=== PATIENT | male | born 1955 | race Caucasian/White ===

== ENCOUNTER → 2022-10-13 08:46 | Outpatient (BNVA) | payer MEDICARE, SELFPAY | PROVIDERS: Visit Provider Podiatrist Foot & Ankle Surgery | DX: E11.42 Type 2 diabetes mellitus with diabetic polyneuropathy (principal); L84 Corns and callosities; L60.3 Nail dystrophy; M20.41 Other hammer toe(s) (acquired), right foot; M20.42 Other hammer toe(s) (acquired), left foot; M21.41 Flat foot [pes planus] (acquired), right foot; M21.42 Flat foot [pes planus] (acquired), left foot; I73.9 Peripheral vascular disease, unspecified; E11.621 Type 2 diabetes mellitus with foot ulcer; L97.512 Non-pressure chronic ulcer of other part of right foot with fat layer exposed; Z79.84 Long term (current) use of oral hypoglycemic drugs | CPT/HCPCS: 11055; 11721; 99204 ==

== ENCOUNTER → 2022-12-15 12:29 | Outpatient (BNVA) | payer MEDICARE, SELFPAY | PROVIDERS: Referring Provider Family Medicine; Visit Provider Internal Medicine | DX: R07.9 Chest pain, unspecified (principal); I45.10 Unspecified right bundle-branch block; I73.9 Peripheral vascular disease, unspecified; I25.10 Atherosclerotic heart disease of native coronary artery without angina pectoris; I48.91 Unspecified atrial fibrillation; I48.92 Unspecified atrial flutter | CPT/HCPCS: 36415; 80053; 83880; 85025; 85610; 93005; 99214 ==

== ENCOUNTER → 2023-01-01 08:19 | Outpatient (BNVA) | payer MEDICARE, SELFPAY | PROVIDERS: Visit Provider Thoracic Surgery (Cardiothoracic Vascular Surgery) | DX: E11.52 Type 2 diabetes mellitus with diabetic peripheral angiopathy with gangrene (principal); L97.512 Non-pressure chronic ulcer of other part of right foot with fat layer exposed; L97.522 Non-pressure chronic ulcer of other part of left foot with fat layer exposed | CPT/HCPCS: 11042; 97597; 99213 ==

== ENCOUNTER → 2023-01-08 09:32 | Outpatient (BNVA) | payer MEDICARE, SELFPAY | PROVIDERS: Visit Provider Thoracic Surgery (Cardiothoracic Vascular Surgery) | DX: E11.52 Type 2 diabetes mellitus with diabetic peripheral angiopathy with gangrene (principal); L97.512 Non-pressure chronic ulcer of other part of right foot with fat layer exposed; L97.522 Non-pressure chronic ulcer of other part of left foot with fat layer exposed | CPT/HCPCS: 11042; 97597 ==

== ENCOUNTER → 2023-01-15 09:04 | Outpatient (BNVA) | payer MEDICARE, SELFPAY | PROVIDERS: Visit Provider Thoracic Surgery (Cardiothoracic Vascular Surgery) | DX: E11.52 Type 2 diabetes mellitus with diabetic peripheral angiopathy with gangrene (principal); L97.512 Non-pressure chronic ulcer of other part of right foot with fat layer exposed; L97.522 Non-pressure chronic ulcer of other part of left foot with fat layer exposed | CPT/HCPCS: 11042; 97597; A6219 ==

== ENCOUNTER → 2023-01-20 08:10 | Outpatient (BNVA) | payer MEDICARE, SELFPAY | PROVIDERS: Visit Provider Thoracic Surgery (Cardiothoracic Vascular Surgery) | DX: E11.52 Type 2 diabetes mellitus with diabetic peripheral angiopathy with gangrene (principal); L97.512 Non-pressure chronic ulcer of other part of right foot with fat layer exposed; L97.521 Non-pressure chronic ulcer of other part of left foot limited to breakdown of skin | CPT/HCPCS: 11042; 97597; A6252 ==

== ENCOUNTER → 2023-01-22 09:03 | Outpatient (BNVA) | payer MEDICARE, SELFPAY | PROVIDERS: Visit Provider Nurse Practitioner Family | DX: E11.52 Type 2 diabetes mellitus with diabetic peripheral angiopathy with gangrene (principal); L97.512 Non-pressure chronic ulcer of other part of right foot with fat layer exposed; L97.522 Non-pressure chronic ulcer of other part of left foot with fat layer exposed | CPT/HCPCS: 11042; A6212; A6252 ==

== ENCOUNTER → 2023-01-25 15:19 | Outpatient (BNVA) | payer MEDICARE, SELFPAY | PROVIDERS: Visit Provider Nurse Practitioner Family | DX: E11.52 Type 2 diabetes mellitus with diabetic peripheral angiopathy with gangrene (principal); L97.512 Non-pressure chronic ulcer of other part of right foot with fat layer exposed; Z09 Encounter for follow-up examination after completed treatment for conditions other than malignant neoplasm | CPT/HCPCS: 11042; A6252 ==

== ENCOUNTER → 2023-01-29 11:16 | Outpatient (BNVA) | payer MEDICARE, SELFPAY | PROVIDERS: Visit Provider Nurse Practitioner Family | DX: E11.52 Type 2 diabetes mellitus with diabetic peripheral angiopathy with gangrene (principal); L97.512 Non-pressure chronic ulcer of other part of right foot with fat layer exposed | CPT/HCPCS: 11042 ==

== ENCOUNTER → 2023-02-02 08:40 | Outpatient (BNVA) | payer MEDICARE, SELFPAY | PROVIDERS: Visit Provider Podiatrist Foot & Ankle Surgery | DX: L97.512 Non-pressure chronic ulcer of other part of right foot with fat layer exposed (principal); I73.9 Peripheral vascular disease, unspecified; E11.621 Type 2 diabetes mellitus with foot ulcer; L97.514 Non-pressure chronic ulcer of other part of right foot with necrosis of bone; E11.42 Type 2 diabetes mellitus with diabetic polyneuropathy; M20.41 Other hammer toe(s) (acquired), right foot; M20.42 Other hammer toe(s) (acquired), left foot | CPT/HCPCS: 73630; 87070; 87075; 87077; 87186; 87205; 99214 ==

== ENCOUNTER 2023-02-05 06:02 | Day surgery (SDC) | payer MEDICARE, SELFPAY ==
[2023-02-04 09:22] VITALS: BMI 25.7
[2023-02-05] VITALS (7 sets, daily range): BP systolic 103–126; BP diastolic 54–89; PULSE 57–65; RESP 12–18; TEMP 36.2–36.7; O2SAT 94–100; BMI 25.7
--- NOTE | 2023-02-05 06:09 | P.OP_ITS ---
Operative Report Date of procedure: February 05, 2023 Pre-op diagnosis: Osteomyelitis proximal phalanx right fifth toe Osteomyelitis right fifth metatarsal Diabetes with peripheral neuropathy Peripheral arterial disease with history of revascularization of lower extremities. Post-op diagnosis: Same Post-op findings: Devitalized bone at the right fifth metatarsal head and fifth proximal phalanx base Procedure done: Incision down to bone cortex right foot CPT code 13344 Implants: None Specimens removed/disposition: Fifth metatarsal bone sent to microbiology for Gram stain, culture and sensitivity Pathology: Base of fifth proximal phalanx, right foot sent to pathology for review Surgeon: Prabhu Avelar DPM Tow Truck Dispatcher: Akhil Estimated blood loss: 5 12 IV fluids: 0 Urine output: 0 Complications: None Brief History: Wound exposed to bone right forefoot. -X-ray right foot shows potential pathologic fracture of the lateral condyle at the base of the proximal phalanx right fifth toe with erosive changes suggestive of osteomyelitis.? No foreign body appreciated on right foot x-ray 3 views, no soft tissue emphysema appreciated.? Tailor's bunion present.? Increased fourth intermetatarsal angle right foot. -Wound culture taken sent to microbiology for Gram stain, culture and sensitivity -prescribed Bactrim DS and may adjust pending wound culture findings -Continue with Dakin's wet-to-dry -Offload with cam boot, right foot Discussed potential benefit of surgical debridement this would entail resection of the base of the proximal phalanx and head of the fifth metatarsal versus partial fifth ray resection.? Patient and are on board and like to have this done in conjunction with continuation of antibiotics and wound care clinic.? I contacted wound care clinic, they will hold his appointment this Wednesday and resume wound care appointments the following 02/12/2023.? Planning for outpatient surgery for surgical debridement right foot wound 02/05/2023. I reviewed at length with the patient, the risks, potential complications, benefits, alternatives, expectations, and typical outcomes associated with the surgery. The risks and potential complications were explained in detail, including but not limited to infection, wound dehiscence or soft tissue complications, bleeding and hematoma, chronic edema, neuritis or nerve damage producing numbness or chronic pain, CRPS, failure to relieve pain or worsening pain, thick / painful / unsightly scar, limited motion / stiffness, malposition, delayed union, malunion, or nonunion, fracture, reaction to implants, anesthetic complications, venous thromboembolism, and deformity recurrence.? I discussed the notion of no regrets with the patient as it pertains to complications and outcomes. The patient seemed to understand the nature of the proposed care and required convalescence. They asked appropriate questions, answered to their satisfaction. They are aware no guarantees can be made as to a satisfactory outcome and they understand there may be other possible unforeseen complications or outcomes not listed here that will be treated accordingly if they arise. There were no written or implied guarantees given to the patient. They gave informed consent to proceed. Procedure: Under mild sedation the patient was brought to the operating room and remained on the gurney in supine position. A timeout was performed. Anesthesia was then administered by the anesthesia service. Local anesthesia was injected by myself consisting of 30 cc of one-to-one mixture 1% lidocaine and 0.5% Marcaine plain in a reverse Portillo block fashion to the right foot. Right lower extremity was scrubbed, prepped and draped utilizing normal aseptic technique. Esmarch bandage utilized to the tourniquet for a total of 12 minutes the right ankle with underlying cast padding. Attention was directed to the right foot where a full-thickness wound with exposed fifth metatarsal head and base of the proximal phalanx of the fifth toe was visualized with hernandez and black undertone of devitalized tissue involving bone. Incision was extended distally and proximally to area of devitalized tissue and circumferentially margins were excised full-thickness of skin down to deep fascia and bone down to healthy margins. A sagittal saw was utilized to incise bone at the distal aspect of the right fifth metatarsal this was then sent to microbiology for Gram stain, culture and sensitivity to help guide antibiotic therapies moving forward. Base of the proximal phalanx of the right fifth toe was also transected utilizing a sagittal saw and this bone was sent to pathology for review. The incision was irrigated with copious amounts of Staticin solution. All visualized devitalized tissue was excised sharply and passed in the operative field followed by further irrigation. Post surgical wound measurements to the right lateral forefoot were 6.4 cm x 3.2 cm by 0.5 cm. No further devitalized tissue appreciated. There was some bleeding at skin margins, questionable if perfusion is adequate for healing of the right lateral forefoot wound, have to monitor closely. Tourniquet was removed and a delayed hyperemic response was noted to the right lateral forefoot, capillary refill was 5 seconds at the fifth toe. Dressing of saline wet-to-dry utilizing sterile 4 x 4's, Kerlix, ABD pad and Primo wrap without compression as to not impede further circulatory perfusion. Cam boot was applied to the right lower extremity. Postop x-rays pending. Patient tolerated the procedure and anesthesia well and was transferred to the PACU with vital signs stable and vascular status intact. Following a period of postoperative monitoring he will be discharged home. Will continue Bactrim DS as previously prescribed. Wound cultures are still pending taken in clinic 02/02/2023. Will await surgical cultures as well to determine antibiotic selection. Ultimately patient is at risk for a higher level of amputation. Appreciate wound care clinic for management of his wound moving forward. He has an appointment with wound care clinic on 02/12/2023 at 3:45 PM.
--- NOTE | 2023-02-05 06:09 | W.PM.OPSUD ---
Surgery/Procedure H&P Update DATE OF PROCEDURE: February 05, 2023 DATE H&P PERFORMED: 02/02/23 H&P UPDATE INFORMATION: I have reviewed H&P completed within last 30 days, I have examined patient prior to procedure, No changes to prior documentation and H&P is in [facility] EMR on date indicated PREOP DIAGNOSIS: Osteomyelitis right foot PRIMARY INDICATION FOR PROCEDURE: Osteomyelitis right foot PLANNED PROCEDURE: Operation Date: 02/05/23 07:00 Proposed Procedures p Incision Bone Cortex Right Foot 05753,L97.514(Right) - Prabhu Avelar DPM
[2023-02-05] MEDS: sodium chloride 0.9% 1,000 ML 30 ML IV (06:44)
[2023-02-05] MEDS: ceFAZolin 2,000 MG in sodium chloride 0.9% (plus) 50 ML 100 MG IV (06:58)
--- NOTE | 2023-02-05 07:34 | XR_ITS ---
WS: [id number] Right foot, 3 views, 02/05/2023 Clinical Data: post op right foot 5th ray Comparison: Right foot, 02/02/2023 Findings: The distal half of the right fifth metatarsal has been amputated. The distal portion of the right fif th toe remains. The remainder of the right foot shows no change. Impression: Amputation of the distal half of the right fifth metatarsal.
[2023-02-05] MEDS: BUPivacaine 0.5% INJ 30 mL INJECTION (07:39)
--- NOTE | 2023-02-05 08:30 | P.ANESASSM_ITS ---
Pre-Anesthetic Assessment Height/Weight: Height 1.83 m Weight 86.183 kg Temp Pulse Resp BP Pulse Ox O2 Del Method O2 Flow Rate 97.9 F 63 17 122/70 97 Room Air 6 02/05/23 07:50 02/05/23 08:04 02/05/23 08:04 02/05/23 08:04 02/05/23 08:04 02/05/23 08:04 02/05/23 07:38 Preop Diagnosis: Osteomyelitis right foot Operation Date: 02/05/23 07:00 Proposed Procedures p Incision Bone Cortex Right Foot 65970,L97.514(Right) - Prabhu Avelar DPM Familial anesthetic complications: none Was Beta Vikram taken within 24 hours: Yes Was Clonidine taken within 24 hours: N/A Last intake: Intake Last Liquid Date 02/04/23 Last Liquid Time 19:00 Last Solid Date 02/04/23 Last Solid Time 19:00 Social No alcohol and No tobacco Exam clear to auscultation bilaterally and regular rate & rhythm Some confusion Airway Submandibular: within normal limits Cervical ROM: within normal limits Mallampati: Class I Dentition: false Pulmonary Chronic Obstructive Pulmonary Disease CV/HEM Atrial Fibrillation, Anemia, Coronary Artery Disease, Hypertension and Peripheral Vascular Disease Metabolic Hyperlipidemia Neuropsych confused Anesthetic Plan ASA status: 3 Anesthesia: MAC Medications/Allergies Home Medications Medication Instructions Recorded Confirmed Last Taken Type albuterol sulfate 90 mcg/actuation 90 mcg inhalation DIRECTED 10/13/22 02/04/23 02/03/23 History aerosol inhaler apixaban 5 mg tablet (Eliquis) 5 tab PO BID 10/13/22 02/04/23 02/04/23 History atorvastatin 40 mg tablet (Lipitor) 40 ea PO DAILY 10/13/22 02/04/23 02/04/23 History blood sugar diagnostic (OneTouch #10 ea 10/13/22 02/02/23 Unknown History Verio test strips) clopidogrel 75 mg tablet 75 tab PO DAILY 10/13/22 02/04/23 02/04/23 History dapagliflozin propanediol 10 mg 10 ea PO DAILY 10/13/22 02/04/23 02/04/23 History tablet (Farxiga) diabetic shoes with 3 sets of #1 ea 10/13/22 02/02/23 Unknown Rx insoles lancets 30 gauge (OneTouch Delica #100 ea 10/13/22 02/02/23 Unknown History Plus Lancet) magnesium oxide 400 mg (241.3 mg 400 mg PO DAILY 10/13/22 02/04/23 02/04/23 History magnesium) tablet metformin 1,000 mg tablet 1,000 tab PO BID 10/13/22 02/04/23 02/04/23 History pantoprazole 40 mg tablet,delayed 40 ea PO DAILY 10/13/22 02/04/23 02/04/23 History release pregabalin 75 mg capsule 75 cap PO DAILY 10/13/22 02/04/23 02/04/23 History tramadol 50 mg tablet 50 tab PO DAILY 10/13/22 02/04/23 02/04/23 History trazodone 50 mg tablet 50 ea PO DAILY 10/13/22 02/04/23 02/04/23 History Multivitamin PO 12/15/22 02/02/23 Unknown History ferrous sulfate 325 mg (65 mg 325 mg PO TID 12/15/22 02/04/23 02/04/23 History iron) tablet fluticasone furoate 100 1 inh inhalation DAILY 12/15/22 02/04/23 02/04/23 Hist ory mcg-vilanterol 25 mcg/dose inhalation powder (Breo Ellipta) mecobalamin (vitamin B12) 500 mcg 500 mcg PO DAILY 12/15/22 02/04/23 02/04/23 History chewable tablet metoprolol succinate 50 mg 50 mg PO DAILY 12/15/22 02/05/23 02/05/23 History tablet,extended release 24 hr omega 6-rtj-ael-fish oil 1,200 mg 1,200 cap PO DAILY 12/15/22 02/04/23 02/04/23 History (144 mg-216 mg) capsule (Fish Oil) ropinirole 0.5 mg tablet 0.5 mg PO BID 12/15/22 02/04/23 02/04/23 History sotalol 120 mg tablet 120 mg PO BID #180 tabs 12/15/22 02/05/23 02/05/23 Rx furosemide 20 mg tablet 20 mg PO DAILY #30 tabs 12/18/22 02/04/23 02/04/23 Rx furosemide 40 mg tablet 40 mg PO DAILY #30 tabs 12/18/22 02/04/23 02/04/23 Rx potassium chloride 10 mEq 10 meq PO DAILY #30 tabs 12/18/22 02/04/23 02/04/23 Rx tablet,extended release sodium hypochlorite 0.5 % solution 1 irrig topical BID #473 mL 01/29/23 02/04/23 02/03/23 Rx (Dakin's Solution) sulfamethoxazole 800 1 tab PO BID 14 days #28 tabs 02/02/23 02/04/23 02/04/23 Rx mg-trimethoprim 160 mg tablet (Bactrim DS) Allergies Allergy/AdvReac Type Severity Reaction Status Date / Time oxycodone Allergy Unknown Verified 02/04/23 09:15 Current Medications Generic Name Dose Route Start Last Admin Trade Name Freq PRN Reason Stop Dose Admin Sodium Chloride 1,000 mls @ 30 mls/hr 02/05/23 06:15 02/05/23 08:06 Sodium Chloride 0.9% IV 02/06/23 06:14 Infused .Q24H ELLE Infusion PFSH Anesthesia Medical History Atrial fibrillation CAD (coronary artery disease) Data Anesthesia Cardiac Studies: No Data to Display
--- NOTE | 2023-02-05 13:32 | ANE.PACU2 ---
Inpatient post-anesthesia follow up: Airway intact: Yes Vital signs: Temperature 97.9 F Pulse Rate 63 Respiratory Rate 17 Blood Pressure 122/70 Pulse Oximetry 97 Oxygen Delivery Me thod Room Air Oxygen Flow Rate 6 Fraction of Inspir ed Oxygen Hydration adequate: Yes Nausea and vomiting: No Pain level: 1 Mental status: Baseline
[2023-02-08 06:28] LABS: Glucose Point of Care 134 mg/dL (70-110)
== END 2023-02-05 08:40 | disposition home or self-care (01) ==
PROVIDERS: Visit Provider Podiatrist Foot & Ankle Surgery
PROC: (CPT 28005; principal; 2023-02-05 07:00)
DX: M86.8X7 Other osteomyelitis, ankle and foot (principal); E11.42 Type 2 diabetes mellitus with diabetic polyneuropathy; J44.9 Chronic obstructive pulmonary disease, unspecified; I48.91 Unspecified atrial fibrillation; I25.10 Atherosclerotic heart disease of native coronary artery without angina pectoris; I10 Essential (primary) hypertension; E78.5 Hyperlipidemia, unspecified; Z79.84 Long term (current) use of oral hypoglycemic drugs
CPT/HCPCS: 28005; 36416; 73630; 82962; 87070; 87077; 87176; 87186; 87205; 88307; 88311; J0690; J2704; J3010; J3490; J7030

== ENCOUNTER → 2023-02-12 14:02 | Outpatient (BNVA) | payer MEDICARE, SELFPAY | PROVIDERS: Visit Provider Thoracic Surgery (Cardiothoracic Vascular Surgery) | DX: E11.52 Type 2 diabetes mellitus with diabetic peripheral angiopathy with gangrene (principal); L97.512 Non-pressure chronic ulcer of other part of right foot with fat layer exposed | CPT/HCPCS: 11042 ==

== ENCOUNTER → 2023-02-19 10:24 | Outpatient (BNVA) | payer MEDICARE, SELFPAY | PROVIDERS: Visit Provider Thoracic Surgery (Cardiothoracic Vascular Surgery) | DX: E11.621 Type 2 diabetes mellitus with foot ulcer (principal); E11.52 Type 2 diabetes mellitus with diabetic peripheral angiopathy with gangrene; L97.514 Non-pressure chronic ulcer of other part of right foot with necrosis of bone; L89.892 Pressure ulcer of other site, stage 2 | CPT/HCPCS: 11044; 87070; 87176; 87205; 97597; 97605; A6237; A6250 ==

== ENCOUNTER → 2023-02-26 09:41 | Outpatient (BNVA) | payer MEDICARE, SELFPAY | PROVIDERS: Visit Provider Thoracic Surgery (Cardiothoracic Vascular Surgery) | DX: E11.52 Type 2 diabetes mellitus with diabetic peripheral angiopathy with gangrene (principal); E11.621 Type 2 diabetes mellitus with foot ulcer; L97.511 Non-pressure chronic ulcer of other part of right foot limited to breakdown of skin; L89.892 Pressure ulcer of other site, stage 2 | CPT/HCPCS: 11042; 97597; 97605; A6212; A6237; A6250 ==

== ENCOUNTER → 2023-03-02 12:42 | Outpatient (BNVA) | payer MEDICARE, SELFPAY | PROVIDERS: Visit Provider Internal Medicine | DX: I25.10 Atherosclerotic heart disease of native coronary artery without angina pectoris (principal); I48.91 Unspecified atrial fibrillation; I73.9 Peripheral vascular disease, unspecified; Z79.01 Long term (current) use of anticoagulants | CPT/HCPCS: 99214 ==

== ENCOUNTER → 2023-03-05 09:51 | Outpatient (BNVA) | payer MEDICARE, SELFPAY | PROVIDERS: Visit Provider Nurse Practitioner Family | DX: E11.52 Type 2 diabetes mellitus with diabetic peripheral angiopathy with gangrene (principal); E11.621 Type 2 diabetes mellitus with foot ulcer; L97.512 Non-pressure chronic ulcer of other part of right foot with fat layer exposed; E11.622 Type 2 diabetes mellitus with other skin ulcer; L89.892 Pressure ulcer of other site, stage 2; S91.311A Laceration without foreign body, right foot, initial encounter; X58.XXXA Exposure to other specified factors, initial encounter | CPT/HCPCS: 11042; 97605; A6212 ==

== ENCOUNTER → 2023-03-19 14:59 | Outpatient (BNVA) | payer MEDICARE, SELFPAY | PROVIDERS: Visit Provider Thoracic Surgery (Cardiothoracic Vascular Surgery) | DX: E11.52 Type 2 diabetes mellitus with diabetic peripheral angiopathy with gangrene (principal); E11.621 Type 2 diabetes mellitus with foot ulcer; L97.512 Non-pressure chronic ulcer of other part of right foot with fat layer exposed; Z09 Encounter for follow-up examination after completed treatment for conditions other than malignant neoplasm | CPT/HCPCS: 11042; A6237; A6250 ==

== ENCOUNTER → 2023-03-26 09:27 | Outpatient (BNVA) | payer MEDICARE, SELFPAY | PROVIDERS: Visit Provider Thoracic Surgery (Cardiothoracic Vascular Surgery) | DX: E11.52 Type 2 diabetes mellitus with diabetic peripheral angiopathy with gangrene (principal); E11.621 Type 2 diabetes mellitus with foot ulcer; L97.511 Non-pressure chronic ulcer of other part of right foot limited to breakdown of skin | CPT/HCPCS: 97597; A6212 ×2 ==

== ENCOUNTER → 2023-04-07 08:57 | Outpatient (BNVA) | payer MEDICARE, SELFPAY | PROVIDERS: Visit Provider Nurse Practitioner Family | DX: Z09 Encounter for follow-up examination after completed treatment for conditions other than malignant neoplasm (principal); Z87.2 Personal history of diseases of the skin and subcutaneous tissue | CPT/HCPCS: 99212; A6212 ==

== ENCOUNTER → 2023-05-25 07:52 | Outpatient (BNVA) | payer MEDICARE, SELFPAY | PROVIDERS: PCP Family Medicine; Visit Provider Specialist | DX: G30.9 Alzheimer's disease, unspecified (principal); F02.80 Dementia in other diseases classified elsewhere, unspecified severity, without behavioral disturbance, psychotic disturbance, mood disturbance, and anxiety | CPT/HCPCS: 96116; 99205 ==

== ENCOUNTER → 2023-08-31 10:51 | Outpatient (BNVA) | payer MEDICARE, SELFPAY | PROVIDERS: PCP Family Medicine; Visit Provider Nurse Practitioner Family | DX: I25.10 Atherosclerotic heart disease of native coronary artery without angina pectoris (principal) | CPT/HCPCS: 93005; 99214 ==

== ENCOUNTER → 2023-09-07 08:49 | Outpatient (BNVA) | payer MEDICARE, SELFPAY | PROVIDERS: PCP Family Medicine; Visit Provider Specialist | DX: G30.9 Alzheimer's disease, unspecified (principal); F02.80 Dementia in other diseases classified elsewhere, unspecified severity, without behavioral disturbance, psychotic disturbance, mood disturbance, and anxiety | CPT/HCPCS: 99214 ==

== ENCOUNTER → 2024-02-17 08:40 | Outpatient (BNVA) | payer MEDICARE, SELFPAY | PROVIDERS: PCP Family Medicine; Visit Provider Nurse Practitioner Family | DX: I25.10 Atherosclerotic heart disease of native coronary artery without angina pectoris (principal); I73.9 Peripheral vascular disease, unspecified; R55 Syncope and collapse; J44.9 Chronic obstructive pulmonary disease, unspecified; I48.91 Unspecified atrial fibrillation; I48.92 Unspecified atrial flutter; F17.210 Nicotine dependence, cigarettes, uncomplicated; Z79.01 Long term (current) use of anticoagulants | CPT/HCPCS: 99214 ==

== ENCOUNTER → 2024-03-07 09:41 | Outpatient (BNVA) | payer MEDICARE, SELFPAY | PROVIDERS: PCP Family Medicine; Visit Provider Specialist | DX: G30.9 Alzheimer's disease, unspecified (principal); F02.80 Dementia in other diseases classified elsewhere, unspecified severity, without behavioral disturbance, psychotic disturbance, mood disturbance, and anxiety; J44.9 Chronic obstructive pulmonary disease, unspecified; E11.42 Type 2 diabetes mellitus with diabetic polyneuropathy; W19.XXXA Unspecified fall, initial encounter; X58.XXXA Exposure to other specified factors, initial encounter | CPT/HCPCS: 99213 ==

== ENCOUNTER 2024-08-29 09:50 | Inpatient (IN) | payer MEDICARE, OTHER, SELFPAY ==
[2024-08-29] VITALS (42 sets, daily range): BP systolic 92–123; BP diastolic 54–67; PULSE 47–64; RESP 12–24; TEMP 34.5–36.4; O2SAT 87–100; BMI 24.8
--- NOTE | 2024-08-29 09:58 | ECG_ITS ---
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 Measurements Intervals [place] Rate: 48 P: 8 FL: 191 QRS: 78 QRSD: 121 T: 30 QT: 516 QTc: 461 Interpretive Statements SINUS BRADYCARDIA RIGHT BUNDLE BRANCH BLOCK [120+ ms QRS DURATION, UPRIGHT V1, 40+ ms S IN I/aVL/V4/V5/V6] Compared to ECG 08/31/2023 11:01:38 Sinus rhythm no longer present Electronically Signed On 08-29-2024 21:20:38 CDT by Elvin Collier M.D. [email or web address]
--- NOTE | 2024-08-29 10:02 | XR_ITS ---
WS: [id number] Exam: XR chest 1V portable [id number] Date/Time of Exam: 08/29/2024 10:04 AM Reason For Exam: dyspnea/cough No priors. Lungs are clear and fully expanded. Unremarkable cardiomediastinal silhouette for technique. No pleural effusions. Bony structures are unremarkable. XR/XR chest 1V portable [id number] IMPRESSION: 1. No acute cardiopulmonary finding.
--- NOTE | 2024-08-29 10:11 | CT_ITS ---
WS: [id number] CTA CHEST FOLLOWED BY ABDOMEN AND PELVIS TECHNIQUE: Contrast-enhanced CTA of the chest, followed by abdomen, and pelvis with coronal and sagittal reformatted images and additional MIP Images. CLINICAL INFORMATION: Acute hypoxia, bradycardia, nonresponsive history alcoholism COMPARISON: None. DLP: 1009.[address] scans at [facility] use at least one of these dose optimization techniques: automated exposure control; mA and/or kV adjustment per patient size (includes targeted exams where dose is matched to clinical indication); or iterative reconstruction. FINDINGS: Proximal main pulmonary arteries are normal. Normal segmental and subsegmental pulmonary arteries. No evidence of pulmonary embolus. Dense coronary calcification. Nodular infiltrates in the RIGHT lower lobe. Recommend correlation for pneumonia. Normal caliber thoracic aorta. Aortic calcification. Cirrhotic liver. Diffuse prominent gastric wall enhancement compatible with gastritis. Heterogeneous liver enhancement. Normal portal vein and splenic vein appear patent. Mild splenomegaly. Fatty atrophy of the pancreas. Small RIGHT adrenal adenoma. Normal renal parenchymal enhancement. No hydronephrosis. Dense vascular calcification. Dense aortic calcification. Slightly ectatic distal abdominal aorta measuring 2.2 x 2.3 cm. Tiny trace of sludge in the gallbladder. LEFT BERE degrades images in the pelvis. Cabrera catheter. Degenerative arthritis RIGHT hip with some sclerosis. Extensive sigmoid diverticulosis. Normal appendix. Tiny fat-containing umbilical hernia. Chronic biconcave compression L2 vertebral body with mild chronic retropulsion CT/CT angio chest w abd pel w con IMPRESSION: 1. No evidence of pulmonary embolus. 2. Dense coronary calcification. 3. Patchy nodular infiltrates in the RIGHT lower lobe. Recommend correlation f or pneumonia. 4. Cirrhotic liver. 5. Gastric wall enhancement compatible with gastritis. 6. Extensive sigmoid diverticulosis. No evidence of acute diverticulitis. 7. Chronic compression fracture L2 vertebral body with mild chronic retropulsi on.
--- NOTE | 2024-08-29 10:15 | W.ED.GENADLT ---
HPI - General Adult General: Chief complaint: Altered Mental Status Stated complaint: multi-falls Time Seen by Provider: 08/29/24 10:02 History of Present Illness: 68-year-old male who presents to the emergency room with complaints of multiple falls. He has a history of Alzheimer's disease and A-fib. 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 Has been no hematochezia melena hematemesis or coffee-ground emesis. Patient has no known history of any cancer diagnosis. He had several falls associated with does not think he has hit his head. He has been off the Eliquis for some time. He has a history of coronary artery disease and peripheral artery disease. Related Data Home Medications ?Medication ?Instructions ?Recorded ?Confirmed atorvastatin 40 mg tablet (Lipitor) 40 ea PO DAILY 10/13/22 08/29/24 clopidogrel 75 mg tablet 75 tab PO DAILY 10/13/22 08/29/24 dapagliflozin propanediol 10 mg 10 ea PO DAILY 10/13/22 08/29/24 tablet (Farxiga) metformin 1,000 mg tablet 1,000 tab PO BID 10/13/22 08/29/24 pantoprazole 40 mg tablet,delayed 40 ea PO DAILY 10/13/22 08/29/24 release tramadol 50 mg tablet 50 tab PO DAILY 10/13/22 08/29/24 trazodone 50 mg tablet 50 ea PO DAILY 10/13/22 08/29/24 fluticasone furoate 100 1 inh inhalation DAILY 12/15/22 08/29/24 mcg-vilanterol 25 mcg/dose inhalation powder (Breo Ellipta) ropinirole 0.5 mg tablet 0.5 mg PO BID 12/15/22 08/29/24 hydroxyzine HCl 25 mg tablet 25 mg PO QID PRN Anxiety 03/02/23 08/29/24 pregabalin 75 mg capsule 75 mg PO TID 05/25/23 08/29/24 albuterol sulfate 90 mcg/actuation 2 inh inhalation Q6H 08/29/24 08/29/24 aerosol inhaler hydrocodone 5 mg-acetaminophen 325 1 tab PO Q8H 04/22/25 04/22/25 mg tablet potassium chloride 20 mEq 20 meq PO QAM 08/29/24 08/29/24 tablet,extended release Previous Rx's ?Medication ?Instructions ?Recorded furosemide 40 mg tablet 40 mg PO DAILY #30 tabs 12/18/22 citalopram 40 mg tablet 40 mg PO DAILY #90 tabs 03/07/24 galantamine 8 mg tablet 8 mg PO BID #180 tabs 03/07/24 sotalol 120 mg tablet 120 mg PO BID #180 tabs 03/07/24 levalbuterol tartrate 45 See Rx Instructions .Route 04/14/24 mcg/actuation aerosol inhaler .COMPLEX #15 grams diltiazem HCl 60 mg 60 mg PO BID #90 caps 07/05/24 capsule,extended release 12 hr furosemide 20 mg tablet 20 mg PO DAILY #90 tabs 07/05/24 Allergies Allergy/AdvReac Type Severity Reaction Status Date / Time oxycodone Allergy Unknown Verified 08/29/24 10:23 Review of Systems General: Reports: ROS unobtainable due to mental status PFSH ED PFSH: Medical History CAD (coronary artery disease) Atrial fibrillation Social History Smoking and tobacco/nicotine status: current every day tobacco/nicotine user (smoke 2-2.5 packs a day) cigarettes Alcohol intake: current Substance/Drug Use: never Physical Exam HENMT: COMMON NORMALS: normocephalic and atraumatic HEAD & SCALP: normocephalic and atraumatic Resp: COMMON NORMALS: normal respiratory effort, No retractions, No use of accessory muscles and clear to auscultation bilaterally AUSCULTATION: clear to auscultation bilaterally Cardio: COMMON NORMALS: regular rate, regular rhythm and No murmurs present (Cardio) RATE: regular rate RHYTHM: regular rhythm GI: COMMON NORMALS: Soft to palpation and No hepatosplenomegaly present AUSCULTATION: Yes normoactive bowel sounds PALPATION: Yes Soft to palpation, No Tenderness to palpation present (GI), No Guarding due to palpation present (GI) and Yes No hepatosplenomegaly present Extremity: COMMON NORMALS: normal to inspection, capillary refill normal, no clubbing, cyanosis or edema, no calf tenderness and no pedal edema Skin: COMMON NORMALS: no rashes or lesions noted GENERAL SKIN EXAM: no rashes or lesions noted Course Vital Signs: Vital signs: Vital Signs Temperature 97.0 F L 08/31/24 05:48 Pulse Rate 88 08/31/24 06:00 Respiratory Rate 17 08/31/24 06:00 Blood Pressure 135/75 08/31/24 06:00 Pulse Oximetry 99 08/31/24 06:00 Oxygen Delivery Me thod BiPAP 08/31/24 02:57 Fraction of Inspir ed Oxygen 08/31/24 03:00 MDM - General Adult Medical Decision Making Differential diagnosis includes pneumonia PE congestive heart failure stroke intracranial bleed metabolic encephalopathy seizure or Wernicke's encephalopathy sepsis ABG shows hypercapnic and hypoxic. Patient started on BiPAP. No leukocytosis on initial evaluation. Patient does have a new anemia previous hemoglobin was 13 today is 9.2 hours preemies previous hemoglobin is a year and a half old. He has significant microcytosis. There is a mild metabolic acidosis with a normal anion gap. His glucose is 71 magnesium is low but his potassium is normal. His BNP is 1800. Chest x-ray did not show any acute findings UA was negative. Flu COVID and RSV also negative. CT chest abdomen pelvis shows patchy infiltrates in the right lower lobe no new acute findings in the abdomen and no PE. CT of his head shows prior infarct nothing that appears acute or subacute no intracranial bleeding chest x-ray was read as desiree. Serum ketones and blood alcohol or also negative. CTA of the chest did show pneumonia which likely accounts for his new oxygen need. Given his history of alcoholism we will cover for aspiration with Zosyn discussed with hospitalist orders written. Patient is at the bedside wants him as a Do Not Recussitate does not want him to be intubated.. Medical Records I reviewed the patient's medical records. Lab Data I reviewed the patient's lab results. 08/31/24 05:35 08/31/24 05:35 Radiology Impressions Chest X-Ray 08/29/24 10:02 IMPRESSION: 1. No acute cardiopulmonary finding. Chest/Abdomen/Pelvis CT 08/29/24 10:11 IMPRESSION: 1. No evidence of pulmonary embolus. 2. Dense coronary calcification. 3. Patchy nodular infiltrates in the RIGHT lower lobe. Recommend correlation for pneumonia. 4. Cirrhotic liver. 5. Gastric wall enhancement compatible with gastritis. 6. Extensive sigmoid diverticulosis. No evidence of acute diverticulitis. 7. Chronic compression fracture L2 vertebral body with mild chronic retropulsion. Head CT 08/29/24 11:56 IMPRESSION: 1. No evidence of intracranial hemorrhage or mass effect. 2. Residual contrast from CT earlier today. 3. Moderate small vessel changes and moderate parenchymal volume loss. 4. Low-attenuation change with encephalomalacia in the LEFT parietal lobe likely due to prior infarct. 5. Vascular calcification. Laboratory Results WBC 6.39 10^3/uL (3.29-11.43) 08/29/24 10:34 RBC 5.08 10^6/uL (3.85-5.65) 08/29/24 10:34 Hgb 9.20 g/dL (11.27-16.99) L 08/29/24 10:34 Hct 33.6 % (37-53) L 08/29/24 10:34 MCV 66.1 fl (82-101) L 08/29/24 10:34 MCH 18.1 pg (27-33) L 08/29/24 10:34 MCHC 27.4 g/dL (30-55) L 08/29/24 10:34 RDW 19.9 % (12.1-15.1) H 08/29/24 10:34 Plt Count 178 10^3/cmm (157-399) 08/29/24 10:34 MPV TNP 08/29/24 10:34 Neut % (Auto) 67.4 % 08/29/24 10:34 Lymph % (Auto) 18.3 % 08/29/24 10:34 Moffat % (Auto) 8.8 % 08/29/24 10:34 Eos % (Auto) 3.9 % 08/29/24 10:34 Baso % (Auto) 1.1 % 08/29/24 10:34 Neut # (Auto) 4.31 10^3/uL (1.8-7.7) 08/29/24 10:34 Lymph # (Auto) 1.2 10^3/uL (0.8-4.8) 08/29/24 10:34 Moffat # (Auto) 0.6 10^3/uL (0.2-0.9) 08/29/24 10:34 Eos # (Auto) 0.3 10^3/uL (0.0-0.8) 08/29/24 10:34 Baso # (Auto) 0.1 10^3/uL (0.0-0.1) 08/29/24 10:34 Nucleated RBC % (auto) 0 % 08/29/24 10:34 Nucleated RBCs # 0.0 /100WBC 08/29/24 10:34 Specimen Type Arterial 08/29/24 12:21 Sample Site Radial, left 08/29/24 12:21 ABG pH 7.34 (7.35-7.45) L 08/29/24 12:21 ABG pCO2 55.1 mmHg (35-45) H 08/29/24 12:21 ABG pO2 73.0 mmHg (80.0-100.0) L 08/29/24 12:21 ABG PO2/FiO2 Ratio 304 08/29/24 12:21 ABG HCO3 29.6 mmol/L (22-26) H 08/29/24 12:21 ABG O2 Saturation 91.4 08/29/24 12:21 ABG Base Excess 3.1 mmol/L (-2.0-2.0) H 08/29/24 12:21 Sam Test Pos 08/29/24 12:21 A-a O2 Gradient 4.0 mmHg (5-10) L 08/29/24 12:21 Hematocrit 28.9 % (42-52) L 08/29/24 12:21 Hgb O2 Saturation 88.6 % (95-100) L 08/29/24 12:21 Carboxyhemoglobin 2.0 %THgb (0.4-20.1) 08/29/24 12:21 Methemoglobin 1.0 % (0.4-1.5) 08/29/24 12:21 Total Hemoglobin 9.4 g/dL (14-18) L 08/29/24 12:21 Sodium 135.0 mmol/L (131-143) 08/29/24 12:21 Potassium 4.3 mmol/L (3.5-5.0) 08/29/24 12:21 Glucose 150.0 mg/dL (70-115) H 08/29/24 12:21 Ionized Calcium 1.2 mmol/L (1.1-1.4) 08/29/24 12:21 O2 Delivery Device Bipap 08/29/24 12:21 O2 Liters/Min 2.0 % 08/29/24 10:22 FiO2 24.0 % 08/29/24 12:21 Telesales Team Leader ID glc 08/29/24 12:21 Sodium 137 mmol/L (136-145) 08/29/24 10:34 Potassium 4.9 mmol/L (3.5-5.1) 08/29/24 10:34 Chloride 97 mmol/L (98-107) L 08/29/24 10:34 Carbon Dioxide 28 mmol/L (22-29) 08/29/24 10:34 Anion Gap 16.9 (5-19) 08/29/24 10:34 BUN 23 mg/dL (8-23) 08/29/24 10:34 Creatinine 1.2 mg/dL (0.7-1.2) 08/29/24 10:34 GFR Calculation 60.0 mL/min (90-130) L 08/29/24 10:34 Glucose 171 mg/dL (65-115) H 08/29/24 10:34 POC Glucose 190 mg/dL (70-110) H 08/29/24 10:07 Calculated Osmolality 292 mOsm/kg (285-295) 08/29/24 10:34 Lactic Acid 2.2 mmol/L (0.5-2.2) 08/29/24 10:34 Lactic Acid (Sepsis) 1.6 mmol/L (0.5-2.2) 08/29/24 13:27 Calcium 9.3 mg/dL (8.5-10.5) 08/29/24 10:34 Magnesium 1.6 mg/dL (1.7-2.3) L 08/29/24 10:34 Total Bilirubin 0.4 mg/dL (0.15-1.2) 08/29/24 10:34 AST 18 U/L (0-40) 08/29/24 10:34 ALT 9 U/L (0-41) 08/29/24 10:34 Alkaline Phosphatase 125 U/L (40-130) 08/29/24 10:34 Creatine Kinase 30 U/L (39-308) L 08/29/24 10:34 Troponin T Baseline < 6 ng/L (0-15) 08/29/24 10:34 Troponin T 120 Minute 6.00 ng/L (0-15) 08/29/24 12:24 Delta Troponin T 0.63926 ABS# (0-10) 08/29/24 12:24 NT-Pro-B Natriuret Pep 1881 pg/mL (0-125) H 08/29/24 10:34 Total Protein 8.0 g/dL (6.6-8.7) 08/29/24 10:34 Albumin 3.7 g/dL (3.5-5.2) 08/29/24 10:34 Globulin 4.3 g/dL (1.3-4.6) 08/29/24 10:34 Lipase 28 U/L (13-60) 08/29/24 10:34 Vitamin B12 534 pg/mL (232-1245) 08/29/24 10:34 Urine Color Yellow (Yellow) 08/29/24 11:07 Urine Appearance Clear (CLEAR) 08/29/24 11:07 Urine pH 5.0 (5-7) 08/29/24 11:07 Ur Specific [place] 1.015 (1.005-1.030) 08/29/24 11:07 Urine Protein Negative (Negative) 08/29/24 11:07 Urine Glucose (UA) 2+ (Normal) H 08/29/24 11:07 Urine Ketones Negative (Negative) 08/29/24 11:07 Urine Blood Negative (Negative) 08/29/24 11:07 Urine Nitrate Negative (Negative) 08/29/24 11:07 Urine Bilirubin Negative (Negative) 08/29/24 11:07 Urine Urobilinogen 0.2 mg/dL (Negative) 08/29/24 11:07 Ur Leukocyte Esterase Negative (Negative) 08/29/24 11:07 Urine RBC 0-2 /hpf (0-2) 08/29/24 11:07 Urine WBC 0-5 /hpf (0-5) 08/29/24 11:07 Ur Squamous Epith Cells 0-5 /hpf (0-5) 08/29/24 11:07 Amorphous Sediment Not Reportable 08/29/24 11:07 Urine Bacteria None seen /hpf (NONE) 08/29/24 11:07 Hyaline Casts 8.67 /lpf 08/29/24 11:07 Ethyl Alcohol < 10 mg/dL (0-10) 08/29/24 10:34 Serum Ketones Negative (Negative) 08/29/24 10:34 All radiology interpretation(s) finalized by discharge Discharge Plan Discharge Patient Disposition: Admitted As Inpatient Admit Provider: Mily Herbert Clinical Impression: Acute respiratory failure with hypoxia and hypercapnia, Altered mental status, Alcohol abuse, Recurrent falls, Respiratory acidosis, Diabetes mellitus, Atrial fibrillation, Alzheimer disease Condition: Stable Coding Level of Care Code ED [employer] for [employer]
[2024-08-29 10:30] LABS: Glucose Point of Care 190 mg/dL (70-110)
[2024-08-29 10:34] LABS: ABG PH Result 7.26 (7.35-7.45); Alveolar-Arterial Oxygen Gradi 2.4 mmHg (5-10); Arterial Blood Gas Hematocrit 28.8 % (42-52); Base Excess ABG 1.7 mmol/L (-2.0-2.0); Blood Gas Allen Test Pos; Blood Gas Operator Identificat glc; Blood Gas Sample Site Radial, left; Blood Gas Sample Type Arterial; HCO3 ABG 29.8 mmol/L (22-26); HGB O2 Sat 93.1 % (95-100); Ionized Calcium Level - ABG 1.3 mmol/L (1.1-1.4); Methemoglobin 0.5 % (0.4-1.5); Oxygen Device NC; Oxygen Saturation ABG 95.5; PO2 FiO2 Ratio Arterial Blood 357; Potassium Level - ABG 4.5 mmol/L (3.5-5.0); Total Hemoglobin 9.4 g/dL (14-18)
[2024-08-29 10:35] LABS: ABG PCO2 66.9 mmHg (35-45)
[2024-08-29 10:44] LABS: Basophils # 0.1 10^3/uL (0.0-0.1); Basophils % 1.1 %; Eosinophils # 0.3 10^3/uL (0.0-0.8); Eosinophils % 3.9 %; Hematocrit 33.6 % (37-53); Lymphocytes # 1.2 10^3/uL (0.8-4.8); Lymphocytes % 18.3 %; Mean Corpuscular HGB Conc 27.4 g/dL (30-55); Mean Corpuscular Hemoglobin 18.1 pg (27-33); Mean Corpuscular Volume 66.1 fl (82-101); Monocytes # 0.6 10^3/uL (0.2-0.9); Monocytes % 8.8 %; Neutrophils # 4.31 10^3/uL (1.8-7.7); Neutrophils % 67.4 %; Nucleated Red Blood Cells % 0 %; Platelet Count 178 10^3/cmm (157-399); Red Blood Count 5.08 10^6/uL (3.85-5.65); Red Cell Distribution Width 19.9 % (12.1-15.1); White Blood Count 6.39 10^3/uL (3.29-11.43)
[2024-08-29 10:59] LABS: Ketone (Acetest) Serum Negative (Negative)
[2024-08-29 11:01] LABS: Lactic Sepsis W/Reflex 2.2 mmol/L (0.5-2.2)
[2024-08-29 11:02] LABS: Troponin(5th) Baseline < 6 ng/L (0-15)
[2024-08-29 11:05] LABS: Slide Review Slide Review Perform
[2024-08-29 11:06] LABS: Alanine Aminotransferase 9 U/L (0-41); Albumin Level 3.7 g/dL (3.5-5.2); Alkaline Phosphatase 125 U/L (40-130); Anion Gap 16.9 (5-19); Aspartate Amino Transferase 18 U/L (0-40); Blood Urea Nitrogen 23 mg/dL (8-23); Calcium 9.3 mg/dL (8.5-10.5); Carbon Dioxide 28 mmol/L (22-29); Chloride 97 mmol/L (98-107); Creatine Phosphokinase 30 U/L (39-308); Creatinine Clr Calc Pharmacy 65.5458; Globulin 4.3 g/dL (1.3-4.6); Glucose 171 mg/dL (65-115); Lipase 28 U/L (13-60); Magnesium 1.6 mg/dL (1.7-2.3); Osmolality Calculated 292 mOsm/kg (285-295); Potassium 4.9 mmol/L (3.5-5.1); Sodium 137 mmol/L (136-145); Total Bilirubin 0.4 mg/dL (0.15-1.2)
[2024-08-29 11:36] LABS: Bilirubin Urine Negative (Negative); Blood Urine Negative (Negative); Glucose Urine UA 2+ (Normal); Ketones Urine Negative (Negative); Leukocyte Esterase Urine Negative (Negative); Nitrate Urine Negative (Negative); Protein Urine Negative (Negative); Specific Gravity, Urine 1.015 (1.005-1.030); Urine Appearance Clear (CLEAR); Urine Color Yellow (Yellow); Urobilinogen Urine 0.2 mg/dL (Negative)
[2024-08-29 11:38] LABS: Add Urine Microscopic? YES; Bacteria Urine None Seen /hpf; Hyaline Casts Urine 8.67 /lpf; RBC Urine 0-2 /hpf (0-2); Squamous Epithelial Cell Urine 0-5 /hpf (0-5); WBC Urine 0-5 /hpf (0-5)
[2024-08-29 11:39] LABS: Add Urine Culture? No; UA Slide Review UA Slide Review Perf
[2024-08-29] MEDS: iohexol 350 mg/mL 500 mL Btl (per mL) IV (11:47)
--- NOTE | 2024-08-29 11:56 | CT_ITS ---
WS: [id number] CT HEAD TECHNIQUE: Noncontrast CT of the head obtained from the skullbase to the vertex. CLINICAL INFORMATION: AMS COMPARISON: None. DLP: 1145.[address] scans at [facility] use at least one of these dose optimization techniques: automated exposure control; mA and/or kV adjustment per patient size (includes targeted exams where dose is matched to clinical indication); or iterative reconstruction. FINDINGS: Residual intracranial contrast from prior CT earlier today. No comparisons. No evidence of intracranial hemorrhage. Intracranial contrast decreases sensitivity for hemorrhage detection. Moderate small vessel changes. Chronic lacunar infarcts in the RIGHT greater than LEFT basal ganglia. No hydrocephalus. Vascular calcification. Low-attenuation change in the LEFT parietal lobe with encephalomalacia. This is likely due to prior infarct. Small vessel changes in the sheri. CT/CT head wo con* [id number] IMPRESSION: 1. No evidence of intracranial hemorrhage or mass effect. 2. Residual contrast from CT earlier today. 3. Moderate small vessel changes and moderate parenchymal volume loss. 4. Low-attenuation change with encephalomalacia in the LEFT parietal lobe like ly due to prior infarct. 5. Vascular calcification.
--- NOTE | 2024-08-29 12:12 | ECG_ITS ---
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 Measurements Intervals [place] Rate: 47 P: -5 NC: 182 QRS: 84 QRSD: 129 T: 68 QT: 553 QTc: 492 Interpretive Statements SINUS BRADYCARDIA RIGHT BUNDLE BRANCH BLOCK [120+ ms QRS DURATION, UPRIGHT V1, 40+ ms S IN I/aVL/V4/V5/V6] Nondiagnostic T wave changes PROLONGED QT INTERVAL CRITICAL TEST RESULT Compared to ECG 08/29/2024 09:58:01 Prolonged QT interval now present Electronically Signed On 08-30-2024 08:46:25 CDT by Elvin Collier M.D. [email or web address]
[2024-08-29 12:26] LABS: Reflex Lactate Order REFLEX LACTIC ORDERD
[2024-08-29 12:33] LABS: ABG PCO2 55.1 mmHg (35-45); ABG PH Result 7.34 (7.35-7.45); Arterial Blood Gas Hematocrit 28.9 % (42-52); Base Excess ABG 3.1 mmol/L (-2.0-2.0); Blood Gas Allen Test Pos; Blood Gas Operator Identificat glc; Blood Gas Sample Site Radial, left; Blood Gas Sample Type Arterial; HCO3 ABG 29.6 mmol/L (22-26); HGB O2 Sat 88.6 % (95-100); Ionized Calcium Level - ABG 1.2 mmol/L (1.1-1.4); Oxygen Device BIPAP; Oxygen Saturation ABG 91.4; PO2 FiO2 Ratio Arterial Blood 304; Potassium Level - ABG 4.3 mmol/L (3.5-5.0); Total Hemoglobin 9.4 g/dL (14-18)
[2024-08-29 12:57] LABS: Troponin 5 2HR Delta 0.00001 ABS# (0-10)
[2024-08-29] MEDS: SODIUM CHLORIDE 0.9% 2490.21 ML IV (13:16)
[2024-08-29 13:41] LABS: Alcohol Level < 10 mg/dL (0-10)
[2024-08-29 13:52] LABS: Lactic Acid level (Lactate) 1.6 mmol/L (0.5-2.2)
--- NOTE | 2024-08-29 14:11 | PM.HP ---
Providers/Chief Complaint Admitting Physician: Mily Herbert MD Primary Care Provider: Jane Lindsey MD Chief Complaint: multi-falls History of Present Illness Manfred Milan is a 68 year old male With past medical history of Alzheimer's dementia, hyperlipidemia, diabetes mellitus not on insulin, coronary disease with [address] as per , atrial fibrillation, daily alcohol abuse, history of hip fracture, recurrent falls presented to the hospital today by for being more sleepy than usual. She states he drinks 8-10 shots of whiskey daily however yesterday drank three-quarter bottle of champagne. He has been falling a lot and therefore in the past was taken off of Eliquis by patient choice after discussion with his primary care provider. He is now only on Plavix. He says he is very unsteady on his feet unable to do his activities of daily living. His cares for him. He wears depends. Unable to cook for himself unable to dress himself. Does not leave the house and stays home. Sees Dr. Walker for his Alzheimer's. She states for the last few months he has been declining. He has had a stroke in 2019. Does not wear CPAP or BiPAP at home. Because she noticed him being obtunded she brought him to the hospital. On arrival in the ER blood gas showed 7.2 . Patient was placed on BiPAP. Repeat blood gas has been slightly improving. Initially was unable to open his eyes and was very obtunded however at the time of my evaluation he is able to tell me his name appears to be still quite lethargic however is participating more than he was initially at presentation in the ER. Also noted to be hypothermic, temperature 95. Was placed on Glenn hugger. Patient's states that he has had a lot of issues with falls and low blood pressure. He has been taking his Lasix along with drinking alcohol daily. Patient appears quite dehydrated at this time. She states he eats well and has been taking most of his medications. Patient's denies patient having any nausea vomiting diarrhea chest pain shortness of breath. Patient is DNR/DNI as per . She states he has had a conversation with her on multiple occasions that does not want any heroic measures. Also states that her mom had COPD and does not want patient to go on a ventilator. However she also states that if he does deteriorate to a point where we may need to intubate she would like for us to discuss with her again in case she would change her mind at that time. Mental status: Patient's states that usually he is able to recognize people however mostly is generally slightly confused at baseline. Requires help with all ADLs. Medications/Allergies Home Medications ?Medication ?Instructions ?Recorded ?Confirmed ?Last Taken ?Type atorvastatin 40 mg tablet (Lipitor) 40 ea PO DAILY 10/13/22 08/29/24 08/29/24 History clopidogrel 75 mg tablet 75 tab PO DAILY 10/13/22 08/29/24 08/29/24 History dapagliflozin propanediol 10 mg 10 ea PO DAILY 10/13/22 08/29/24 08/29/24 History tablet (Farxiga) metformin 1,000 mg tablet 1,000 tab PO BID 10/13/22 08/29/24 08/29/24 History pantoprazole 40 mg tablet,delayed 40 ea PO DAILY 10/13/22 08/29/24 08/29/24 History release tramadol 50 mg tablet 50 tab PO DAILY 10/13/22 08/29/24 08/29/24 History trazodone 50 mg tablet 50 ea PO DAILY 10/13/22 08/29/24 08/29/24 History fluticasone furoate 100 1 inh inhalation DAILY 12/15/22 08/29/24 08/29/24 History mcg-vilanterol 25 mcg/dose inhalation powder (Breo Ellipta) ropinirole 0.5 mg tablet 0.5 mg PO BID 12/15/22 08/29/24 08/29/24 History furosemide 40 mg tablet 40 mg PO DAILY #30 tabs 12/18/22 08/29/24 08/29/24 Rx hydroxyzine HCl 25 mg tablet 25 mg PO QID PRN Anxiety 03/02/23 08/29/24 08/29/24 History pregabalin 75 mg capsule 75 mg PO TID 05/25/23 08/29/24 08/29/24 History citalopram 40 mg tablet 40 mg PO DAILY #90 tabs 03/07/24 08/29/24 08/29/24 Rx galantamine 8 mg tablet 8 mg PO BID #180 tabs 03/07/24 08/29/24 08/29/24 Rx sotalol 120 mg tablet 120 mg PO BID #180 tabs 03/07/24 08/29/24 08/29/24 Rx levalbuterol tartrate 45 See Rx Instructions .Route 04/14/24 08/29/24 08/29/24 Rx mcg/actuation aerosol inhaler .COMPLEX #15 grams diltiazem HCl 60 mg 60 mg PO BID #90 caps 07/05/24 08/29/24 08/29/24 Rx capsule,extended release 12 hr furosemide 20 mg tablet 20 mg PO DAILY #90 tabs 07/05/24 08/29/24 08/28/24 Rx albuterol sulfate 90 mcg/actuation 2 inh inhalation Q6H 08/29/24 08/29/24 08/29/24 History aerosol inhaler hydrocodone 5 mg-acetaminophen 325 1 tab PO Q8H 08/29/24 08/29/24 08/29/24 History mg tablet potassium chloride 20 mEq 20 meq PO QAM 08/29/24 08/29/24 08/29/24 History tablet,extended release Allergies Allergy/AdvReac Type Severity Reaction Status Date / Time oxycodone Allergy Unknown Verified 08/29/24 10:23 PFSH Acute PFSH: Medical History CAD (coronary artery disease) Atrial fibrillation Social History Smoking and tobacco/nicotine status: current every day tobacco/nicotine user (smoke 2-2.5 packs a day) cigarettes Alcohol intake: current Substance/Drug Use: never Vitals/I&O/Wt Last Vital Signs Temp 95.3 F L 08/29/24 13:16 Pulse 48 L 08/29/24 12:47 Resp 12 08/29/24 10:04 BP 92/54 08/29/24 12:47 Pulse Ox 95 08/29/24 12:47 O2 Del Method BiPAP 08/29/24 12:47 FiO2 24 08/29/24 10:46 Weight last 48 hrs Weight 83.007 kg Physical Exam Narrative: General: Quite lethargic, on BiPAP at this time. Does open his eyes to verbal command able to state his name. Mumbles a bit. Able to answer no when asked if he has any pain. Other than that not really talking much. Able to move all 4 extremities. No conversational dyspnea. As per mental status is better compared to when they first arrived to ER. Patient appears to be dehydrated, dry mucous membranes. HEENT: Normocephalic, atraumatic, EOMI, Cardio: Sinus bradycardia, normal S1-S2, no gross murmurs. Respiratory: Clear to auscultation bilaterally no wheezes no rhonchi at this time. GI: Abdomen soft, nontender, nondistended, bowel sounds + Extremities: No edema bilateral lower extremities, very dry skin. Data 08/29/24 10:34 08/29/24 10:34 Micro: Microbiology 08/29/24 10:30 Blood Culture - Preliminary Blood SPECIMEN COLLECTED 08/29/24 10:34 Blood Culture - Preliminary Blood SPECIMEN COLLECTED A&P Assessment and plan (1) Obtunded: (2) CO2 narcosis: (3) Altered mental status: (4) Alcohol abuse: (5) Lethargic: (6) Respiratory acidosis: (7) Recurrent falls: (8) CAD (coronary artery disease): Qualifiers: Coronary Disease-Associated Artery/Lesion type: [place] artery [place] vs. transplanted heart: [place] heart Associated angina: without angina Qualified Code(s): I25.10 - Atherosclerotic heart disease of [place] coronary artery without angina pectoris (9) Atrial fibrillation: Qualifiers: Atrial fibrillation type: paroxysmal Qualified Code(s): I48.0 - Paroxysmal atrial fibrillation (10) Peripheral arterial disease: (11) Depression due to dementia: (12) Alzheimer disease: (13) Diabetes mellitus: Plan #Altered mental status #CO2 narcosis #Pneumonia #Alcohol abuse #History of COPD #History of Alzheimer dementia, unable to do ADLs at baseline #History of atrial fibrillation, takes sotalol #Peripheral arterial disease #History of hip fracture #CAD status post PCI, 15 stents as per ? ? Continue BiPAP at this time as patient is responding well to it. Will check another blood gas around 5 PM. If continues to improve may not need intubation. However in case of further deterioration is to be contacted regarding permission to intubate. However for now she would like to keep patient DNR/DNI as per patient's wishes and her wishes. She may change her mind later on however. ? Patient may have aspirated during the last few days since he has been more lethargic and obtunded. Order Vanco and Zosyn. Check MRSA nares. Check procalcitonin ? DuoNeb every 6 hours as needed ? Patient did receive normal saline bolus in ER. Will continue normal saline 100 cc/h. ? Patient is bradycardic with heart rate in 50s. Do not appreciate heart block on telemetry. I will hold sotalol at this time. He is on 120 twice daily. May need to reduce dose however we will hold off on it at this time secondary to low blood pressure as well. Continue to hydrate the patient. ? Blood pressure soft 90s over 50s. Continue to hold sotalol and furosemide and diltiazem. ? Continue atorvastatin, citalopram, Plavix. ? Continue galantamine 8 mg twice daily ? Patient at risk of alcohol withdrawal in next 24 to 48 hours. Last drink was 08/28. ? Patient's denies patient having any withdrawal seizures in the past. ? No history of DTs ? Order high-dose thiamine x 48 hours. 500 3 times daily x 6 doses total. ? Folic acid 1 mg daily ? I will hold off on adding a CIWA protocol at this time secondary to patient's mentation. This may be added on later pending clinical status. ? Check sputum Gram stain culture, check blood cultures ? Urinalysis not suggestive of UTI at this time. ? Place Cabrera catheter ? Check BNP, echo. ? Goals of care discussion done with the patient's . She states he did never wanted to have heroic measures and does not want to be intubated or want CPR or chest compressions. At this time she would like to elect DNR/DNI status however if the need arises for intubation she would like to be contacted again to rediscuss this. ? If patient's mentation does not improve with blood gas correction may consider MRI. CT head so far negative for bleed or stroke at this time. DNR/DNI Diet: N.p.o. at this time secondary to mental status, speech evaluation ordered. Prophylaxis: Protonix 40 daily PDMP PDMP Reviewed: Not Reviewed Attestations Medical Necessity Statement*: Altered mental status, CO2 narcosis, pneumonia, alcohol abuse. Critical Care Time: The high probability of a clinically significant, sudden or life threatening deterioration of the patient's [respiratory, neurological, cardiac] system(s) required my full and direct attention, intervention and personal management. The critical care time is as shown. This time is in addition to time spent performing any reported procedures but includes the following: [x] Data and vital sign review and interpretation [x] Patient assessment, examination and intervention [x] Documentation [x] Medication orders and management Critical Care Time (min): 55 Coding Level of Care Code Critical Care >/= 30 minutes Critical care time (in minutes): 55 The high probability of a clinically significant, sudden or life threatening deterioration, as referenced in this documentation, required my full and direct attention, intervention and personal management. The critical care time shown is in addition to time spent performing any reported separately billable procedures and includes the following: [x] Data and vital sign review and interpretation [x] Patient assessment, examination and intervention [x] Medication orders and management [x] Patient/Family updates as able [x] Care Coordination and Documentation. Diagnoses Obtunded R40.1 CO2 narcosis R06.89 Altered mental status R41.82 Alcohol abuse F10.10 Lethargic R53.83 Respiratory acidosis E87.29 Recurrent falls R29.6 Coronary artery disease involving [place] coronary artery of [place] heart without angina pectoris I25.10 Coronary Disease-Associated Artery/Lesion type: [place] artery [place] vs. transplanted heart: [place] heart Associated angina: without angina Paroxysmal atrial fibrillation I48.0 Atrial fibrillation type: paroxysmal Peripheral arterial disease I73.9 Depression due to dementia F03.93 Alzheimer disease G30.9; F02.80 Diabetes mellitus E11.9
--- NOTE | 2024-08-29 14:16 | PHA.VACGOAL ---
Vancomycin Goal - Goal Vancomycin Goal:: 15-20 mg/L Vancomycin Indication:: Pneumonia - Therapy Current therapy:: Pip/Tazo Day of therpy:: Day 1 of [] Actual body weight (kg): 183 lb - Data Labs: WBC 6.39 10^3/uL (3.29-11.43) 08/29/24 10:34 RBC 5.08 10^6/uL (3.85-5.65) 08/29/24 10:34 Hgb 9.20 g/dL (11.27-16.99) L 08/29/24 10:34 Hct 33.6 % (37-53) L 08/29/24 10:34 MCV 66.1 fl (82-101) L 08/29/24 10:34 MCH 18.1 pg (27-33) L 08/29/24 10:34 MCHC 27.4 g/dL (30-55) L 08/29/24 10:34 RDW 19.9 % (12.1-15.1) H 08/29/24 10:34 Sodium 137 mmol/L (136-145) 08/29/24 10:34 Potassium 4.9 mmol/L (3.5-5.1) 08/29/24 10:34 Chloride 97 mmol/L (98-107) L 08/29/24 10:34 Carbon Dioxide 28 mmol/L (22-29) 08/29/24 10:34 Anion Gap 16.9 (5-19) 08/29/24 10:34 BUN 23 mg/dL (8-23) 08/29/24 10:34 Creatinine 1.2 mg/dL (0.7-1.2) 08/29/24 10:34 GFR Calculation 60.0 mL/min (90-130) L 08/29/24 10:34 Last dialysis session:: N/A Treatment plan:: new consult Regimen:: INITIAL LOADING DOSE OF 2500 MG X 1 PER DOSING PROTOCOL. MAINTENANCE DOSE OF 1000 MG Q12H Follow up:: WILL CONTINUE TO MONITOR AND FOLLOW UP DAILY.
[2024-08-29] MEDS: piperacillin-tazobactam 3.375 GM in sodium chloride 0.9% (plus) 50 ML IV ×2 (14:29→20:41)
[2024-08-29 14:49] LABS: NT Pro B Type Natriuretic Pept 1881 pg/mL (0-125)
[2024-08-29] MEDS: ipratropium-albuterol 3 mL Neb INHALATION ×2 (14:52→19:53)
[2024-08-29] MEDS: folic acid 5 mg/ml MDV 10mL 1 MG IVP (15:14)
[2024-08-29] MEDS: heparin 5,000 unit/mL INJ 1 mL 5000 UNIT SUBCUT (15:14)
[2024-08-29] MEDS: sodium chloride 0.9% 1,000 ML 125 ML IV ×2 (15:15→22:36)
[2024-08-29] MEDS: thiamine 500 MG in sodium chloride 0.9% (100 ml) 100 ML 210 MG IV ×2 (15:15→22:37)
[2024-08-29 15:25] LABS: Vitamin B12 534 pg/mL (232-1245)
--- NOTE | 2024-08-29 15:52 | PC.NURSE ---
Patient arrived from ED to ICU 12 at 1425. Patient alert to self only. at bedside. says patients baseline cognition unclear, sometimes alert to self and time, mostly self only. She did state patient is not continent of bowel or bladder at baseline. Patient cooperative with bipap at this time.
--- NOTE | 2024-08-29 16:03 | PC.NURSE ---
Verbal order received from Dr. Herbert to place orders for ABGs at 1700 08/29/24. Orders placed.
--- NOTE | 2024-08-29 16:13 | ECG_ITS ---
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 Measurements Intervals [place] Rate: 52 P: 5 MN: 153 QRS: 78 QRSD: 115 T: 62 QT: 476 QTc: 443 Interpretive Statements SINUS BRADYCARDIA nondiagnostic T wave changes LOW QRS VOLTAGE IN EXTREMITY LEADS [QRS DEFLECTION < 0.5 mV IN LIMB LEADS] RIGHT BUNDLE BRANCH BLOCK [120+ ms QRS DURATION, UPRIGHT V1, 40+ ms S IN I/aVL/V4/V5/V6] Compared to ECG 08/29/2024 12:12:33 Low QRS voltage now present Prolonged QT interval no longer present Electronically Signed On 08-30-2024 08:43:23 CDT by Elvin Collier M.D. [id number] [id number]
[2024-08-29 16:44] LABS: Troponin 5 6HR Delta 0.00001 ng/L (0-12)
[2024-08-29 17:18] LABS: ABG PCO2 54.1 mmHg (35-45); ABG PH Result 7.32 (7.35-7.45); Arterial Blood Gas Hematocrit 32.4 % (42-52); Base Excess ABG 1.1 mmol/L (-2.0-2.0); Blood Gas Allen Test Pos; Blood Gas Sample Type Arterial; Carboxyhemoglobin 1.8 %THgb (0.4-20.1); HCO3 ABG 27.9 mmol/L (22-26); HGB O2 Sat 88.7 % (95-100); Ionized Calcium Level - ABG 1.2 mmol/L (1.1-1.4); Methemoglobin 0.3 % (0.4-1.5); Oxygen Saturation ABG 90.6; PO2 ABG 70.4 mmHg (80.0-100.0); Potassium Level - ABG 3.9 mmol/L (3.5-5.0); Total Hemoglobin 10.6 g/dL (14-18)
[2024-08-29 17:20] LABS: Alveolar-Arterial Oxygen Gradi 4.5 mmHg (5-10); Blood Gas Operator Identificat MONRO; Blood Gas Sample Site Radial, right; Oxygen Device BIPAP; PO2 FiO2 Ratio Arterial Blood 293
[2024-08-29 18:43] LABS: Influenza A NEGATIVE (Negative); Influenza B NEGATIVE (Negative); Respiratory Syncytial Virus Ce NEGATIVE (Negative); SARS-CoV-2 PCR NEGATIVE (Negative)
[2024-08-29 19:14] LABS: MRSA PCR OZH (swab) MRSA Detected (Negative)
[2024-08-29] MEDS: LORazepam 2 mg/mL INJ 1 mL 1 MG IVP (21:35)
--- NOTE | 2024-08-29 21:43 | PC.NURSE ---
Contact attempt Attempted to return a phone call to patient's Mena. Call went directly to [employer] with no option to leave a message.
[2024-08-30] VITALS (196 sets, daily range): BP systolic 108–165; BP diastolic 60–107; PULSE 0–143; RESP 7–54; TEMP 36.2–36.7; O2SAT 80–100
[2024-08-30] MEDS: heparin 5,000 unit/mL INJ 1 mL 5000 UNIT SUBCUT ×2 (02:31→14:19)
[2024-08-30] MEDS: ipratropium-albuterol 3 mL Neb INHALATION ×4 (02:33→19:55)
[2024-08-30 04:16] LABS: ABG PCO2 41.9 mmHg (35-45); ABG PH Result 7.39 (7.35-7.45); Arterial Blood Gas Hematocrit 26.5 % (42-52); Base Excess ABG -0.1 mmol/L (-2.0-2.0); Blood Gas Allen Test Pos; Blood Gas Operator Identificat JDB; Blood Gas Sample Site Radial, right; Blood Gas Sample Type Arterial; Oxygen Device BIPAP; PO2 ABG 94.7 mmHg (80.0-100.0); PO2 FiO2 Ratio Arterial Blood 394
[2024-08-30 05:06] LABS: Basophils % 0.6 %; Eosinophils # 0.2 10^3/uL (0.0-0.8); Eosinophils % 2.3 %; Hematocrit 28.9 % (37-53); Lymphocytes # 0.8 10^3/uL (0.8-4.8); Lymphocytes % 11.7 %; Mean Corpuscular Hemoglobin 18.2 pg (27-33); Mean Corpuscular Volume 67.4 fl (82-101); Monocytes # 0.5 10^3/uL (0.2-0.9); Monocytes % 7.5 %; Neutrophils # 5.51 10^3/uL (1.8-7.7); Neutrophils % 77.5 %; Nucleated Red Blood Cells % 0 %; Platelet Count 173 10^3/cmm (157-399); Red Blood Count 4.29 10^6/uL (3.85-5.65); Red Cell Distribution Width 19.8 % (12.1-15.1)
[2024-08-30] MEDS: thiamine 500 MG in sodium chloride 0.9% (100 ml) 100 ML 210 MG IV ×3 (05:30→21:38)
[2024-08-30 05:39] LABS: Alanine Aminotransferase 9 U/L (0-41); Albumin Level 3.4 g/dL (3.5-5.2); Alkaline Phosphatase 116 U/L (40-130); Aspartate Amino Transferase 17 U/L (0-40); Blood Urea Nitrogen 17 mg/dL (8-23); Calcium 8.8 mg/dL (8.5-10.5); Carbon Dioxide 25 mmol/L (22-29); Chloride 103 mmol/L (98-107); Creatinine Clr Calc Pharmacy 87.4816; Globulin 3.8 g/dL (1.3-4.6); Glomerular Filtration Rate 83.7 mL/min (90-130); Glucose 114 mg/dL (65-115); Magnesium 1.4 mg/dL (1.7-2.3); Osmolality Calculated 290 mOsm/kg (285-295); Sodium 139 mmol/L (136-145); Total Bilirubin 0.5 mg/dL (0.15-1.2); Total Protein 7.2 g/dL (6.6-8.7)
[2024-08-30] MEDS: LORazepam 2 mg/mL INJ 1 mL IVP ×5 (08:11→21:47)
--- NOTE | 2024-08-30 08:13 | PC.NURSE ---
Dr Herbert updated on patients status and gave verbal orders to begin CIWA protocol. SEE Mar. Orders placed
[2024-08-30] MEDS: VANCOMYCIN ADD-Vantage 1,000 MG in 0.9% NaCl ADD-Vantage 250 ML 250 MG IV ×2 (09:20→19:23)
[2024-08-30] MEDS: sodium chloride 0.9% 1,000 ML 125 ML IV (09:31)
[2024-08-30] MEDS: pantoprazole 40 mg SDV IVP (09:32)
[2024-08-30] MEDS: folic acid 5 mg/ml MDV 10mL 1 MG IVP (09:47)
[2024-08-30] MEDS: magnesium sulfate premix 4 GM/100 ML PREMIX IV (09:47)
--- NOTE | 2024-08-30 11:42 | PC.NURSE ---
Verbal orders from mg 5mg Zyprexa IM from Dr. Herbert. See MAR Order placed.
[2024-08-30] MEDS: OLANZapine 10 mg VIAL 5 MG IM (11:53)
--- NOTE | 2024-08-30 13:28 | PM.PN ---
Subjective Subjective: seen today patient has been agitated, pulling at IV lines and his oxygen awake and alert, confused at baseline Patient's reported to the nursing staff that patient 150 mg of marijuana Gummies over the last few days. Vitals/I&O/Wt Last Vital Signs Temp 98.0 F 08/30/24 12:00 Pulse 63 08/30/24 12:00 Resp 13 08/30/24 12:00 BP 153/70 08/30/24 12:00 Pulse Ox 98 08/30/24 12:00 O2 Del Method BiPAP 08/30/24 08:10 FiO2 24 08/30/24 11:28 08/29/24 08/30/24 08/30/24 22:59 06:59 14:59 Intake Total 1598.958 / 4089.168 129.792 / 4218.960 1767.5 / 1767.5 Output Total 900 / 900 3400 / 4300 300 / 300 Balance 698.958 / 3189.168 -3270.208 / -81.040 1467.5 / 1467.5 Weight last 48 hrs Weight 81.737 kg Weight 83.206 kg Weight 83.007 kg Physical Exam Narrative: General: on bipap, appears confused and agitated, recently given ativan, HEENT: Normocephalic, atraumatic, EOMI, Cardio: RRR normal S1-S2, no gross murmurs. Respiratory: Clear to auscultation bilaterally no wheezes no rhonchi at this time. GI: Abdomen soft, nontender, nondistended, bowel sounds + Extremities: No edema bilateral lower extremities, very dry skin. Urinary Catheter Management: Cabrera: Cath Placed During This Visit: yes Reason for Continuing Indwelling Catheter: Accurate Measurement of Urinary Output in Critically Ill Patients Urinary Catheter Date of Insertion: 08/29/24 Urinary Catheter Time of Insertion: 14:31 Data 08/30/24 04:48 08/30/24 04:48 Micro: Microbiology 08/29/24 10:34 Blood Culture - Preliminary Blood NEGATIVE TO DATE 08/29/24 10:30 Blood Culture - Preliminary Blood NEGATIVE TO DATE A&P Assessment and plan (1) Obtunded: (2) CO2 narcosis: (3) Altered mental status: (4) Alcohol abuse: (5) Lethargic: (6) Respiratory acidosis: (7) Recurrent falls: (8) CAD (coronary artery disease): Qualifiers: Coronary Disease-Associated Artery/Lesion type: [place] artery [place] vs. 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 ? Continue BiPAP at this time as patient is responding well to it. Will check another blood gas around 5 PM. If continues to improve may not need intubation. However in case of further deterioration is to be contacted regarding permission to intubate. However for now she would like to keep patient DNR/DNI as per patient's wishes and her wishes. She may change her mind later on however. ? Patient may have aspirated during the last few days since he has been more lethargic and obtunded. Order Vanco and Zosyn. Check MRSA nares. Check procalcitonin ? DuoNeb every 6 hours as needed ? Patient did receive normal saline bolus in ER. Will continue normal saline 100 cc/h. ? Patient is bradycardic with heart rate in 50s. Do not appreciate heart block on telemetry. I will hold sotalol at this time. He is on 120 twice daily. May need to reduce dose however we will hold off on it at this time secondary to low blood pressure as well. Continue to hydrate the patient. ? Blood pressure soft 90s over 50s. Continue to hold sotalol and furosemide and diltiazem. ? Continue atorvastatin, citalopram, Plavix. ? Continue galantamine 8 mg twice daily ? Patient at risk of alcohol withdrawal in next 24 to 48 hours. Last drink was 08/28. ? Patient's denies patient having any withdrawal seizures in the past. ? No history of DTs ? Order high-dose thiamine x 48 hours. 500 3 times daily x 6 doses total. ? Folic acid 1 mg daily ? I will hold off on adding a CIWA protocol at this time secondary to patient's mentation. This may be added on later pending clinical status. ? Check sputum Gram stain culture, check blood cultures ? Urinalysis not suggestive of UTI at this time. ? Place Cabrera catheter ? Check BNP, echo. ? Goals of care discussion done with the patient's . She states he did never wanted to have heroic measures and does not want to be intubated or want CPR or chest compressions. At this time she would like to elect DNR/DNI status however if the need arises for intubation she would like to be contacted again to rediscuss this. ? If patient's mentation does not improve with blood gas correction may consider MRI. CT head so far negative for bleed or stroke at this time. DNR/DNI Diet: N.p.o. at this time secondary to mental status, speech evaluation ordered. Prophylaxis: Protonix 40 daily 08/30/2024 Continue to hold sotalol at this time. Will consider giving it reduced dose. Heart rate has been in low 60s. I will continue diltiazem 60 twice daily. Blood pressure is better. No longer hypotensive. Patient did not require any Levophed. He was fluid responsive. Add CIWA protocol. Discussed with Dr. Walker over the phone. She has patient's neurologist. We will stop galantamine going forward. Continue on CIWA protocol at this time. May also use Zyprexa 5 twice daily if needed at this time. Will continue to monitor patient and add medications as needed. MRSA nares positive. Complete vancomycin x 7 days. Continue Zosyn and complete for 7 days. Order speech swallow eval. BNP 1800. Patient appears euvolemic today. 4 L urine output yesterday. Continue to hold Lasix at this time. Sputum Gram stain culture pending. Unable to obtain a sample. Blood cultures negative to date so far. Continue to monitor in ICU setting at this time. May transition back to nasal cannula. ABG reviewed from this morning. CO2 narcosis most likely secondary to sedation from marijuana taken. PDMP PDMP Reviewed: Not Reviewed Attestations Medical Necessity Statement*: Continue to monitor in ICU for alcohol withdrawal with underlying dementia. Diagnoses Obtunded R40.1 CO2 narcosis R06.89 Altered mental status R41.82 Alcohol abuse F10.10 Lethargic R53.83 Respiratory acidosis E87.29 Recurrent falls R29.6 Coronary artery disease involving [place] coronary artery of [place] heart without angina pectoris I25.10 Coronary Disease-Associated Artery/Lesion type: [place] artery [place] vs. transplanted heart: [place] heart Associated angina: without angina Paroxysmal atrial fibrillation I48.0 Atrial fibrillation type: paroxysmal Peripheral arterial disease I73.9 Depression due to dementia F03.93 Alzheimer disease G30.9; F02.80 Diabetes mellitus E11.9
--- NOTE | 2024-08-30 14:04 | USCV_ITS ---
Manfred Milan Age: 68 Gender: M : 1955 Exam Date: 08/30/2024 08:44 Ordering Phys: Mily Herbert MD Technologist: Exam Location: [facility] [place] Indication: hypotension BP: 135 / 62 HR: 79 Rhythm: Sinus Technical Quality: Adequate MEASUREMENTS (Male / Female) Normal Values 2D ECHO LV Diastolic Diameter PLAX 4.0 cm 4.2 - 5.9 / 3.9 - 5.3 cm IVS Diastolic Thickness 1.0 cm 0.6 - 1.0 / 0.6 - 0.9 cm IVS Systolic Thickness 1.7 cm LVPW Diastolic Thickness 1.2 cm 0.6 - 1.0 / 0.6 - 0.9 cm LVPW Systolic Thickness 1.5 cm LVOT Diameter 1.8 cm LV Ejection Fraction 2D Teich 64.9 % LV Ejection Fraction MOD 4C 60.7 % LV Ejection Fraction MOD 2C 53.3 % LV Ejection Fraction 2C AL 54.1 % LA Diameter 4.4 cm RA Systolic Volume 4C AL 35.4 ml RA Systolic Volume 4C MOD 33.0 ml Aorta at Sinotubular Diameter 2.6 cm M-MODE LA Ao Ratio MM 1.9 AV Cusp Separation MM 2.7 cm DOPPLER AV Peak Velocity 103.0 cm/s LVOT Peak Velocity 68.0 cm/s AV Area Cont Eq vti 2.4 cm squared AV Area Cont Eq pk 1.8 cm squared MV Peak Velocity 104.0 cm/s MV Area PHT 3.9 cm squared Mitral E to A Ratio 1.4 TV Peak Velocity 296.0 cm/s TR Peak Velocity 377.0 cm/s TR Peak Gradient 56.9 mmHg TV Peak E Velocity 122.0 cm/s PV Peak Velocity 104.0 cm/s FINDINGS Left Ventricle Normal left ventricular size, systolic function and wall thickness, with no regional wall motion abnormalities. Left ventricular ejection fraction is estimated at 65%. Grade II/IV diastolic dysfunction, moderately elevated filling pressures. Right Ventricle The right ventricle is normal in size and function. Right Atrium The right atrium is normal in size. Left Atrium The left atrium is normal in size. Mitral Valve Thickened mitral valve with moderate mitral annular calcification. No mitral valve stenosis. Trace mitral valve regurgitation. Aortic Valve Mild aortic valve calcification. No aortic valve stenosis. No aortic valve regurgitation. Tricuspid Valve Structurally normal tricuspid valve without significant stenosis or regurgitation. Pulmonary artery systolic pressure is normal. Pulmonic Valve Structurally normal pulmonic valve without significant stenosis. There is no pulmonic regurgitation. Pericardium Normal pericardium without effusion. Aorta Normal ascending aorta dimension. IVC The inferior vena cava appears normal. CONCLUSIONS Normal left ventricular size, systolic function and wall thickness, with no regional wall motion abnormalities. Left ventricular ejection fraction is estimated at 65%. Grade II/IV diastolic dysfunction, moderately elevated filling pressures. There is no pericardial effusion. No significant valve abnormalities. Right atrial pressure is around 5 mm of mercury. Courtney Saleh MD (Electronically Signed) Final Date: 30 August 2024 12:37 S
[2024-08-30] MEDS: piperacillin-tazobactam 3.375 GM in sodium chloride 0.9% (plus) 50 ML IV ×2 (14:18→21:01)
--- NOTE | 2024-08-30 15:15 | PC.NURSE ---
Verbal orders received from Dr. Herbert for Zyprexa IM 5mg BID PRN and to continue with CIWA protocol. See MAR. Orders placed
--- NOTE | 2024-08-30 16:45 | PC.SLP ---
The patient is still not able to participate in an HYDROPULPER OPERATOR assessment/evaluation. HYDROPULPER OPERATOR will attempt to follow-up with the patient tomorrow. The patient remains on BiPAP.
[2024-08-30 20:36] LABS: ABG PH Result 7.41 (7.35-7.45); Arterial Blood Gas Hematocrit 32.9 % (42-52); Base Excess ABG 0.9 mmol/L (-2.0-2.0); Blood Gas Allen Test Pos; Blood Gas Sample Site Radial, right; Blood Gas Sample Type Arterial; HCO3 ABG 25.5 mmol/L (22-26); PO2 ABG 90.6 mmHg (80.0-100.0)
[2024-08-30 20:40] LABS: Blood Gas Operator Identificat JDB; Oxygen Device BIPAP; PO2 FiO2 Ratio Arterial Blood 377
[2024-08-31] VITALS (39 sets, daily range): BP systolic 97–160; BP diastolic 60–97; PULSE 64–125; RESP 14–41; TEMP 36.1–36.6; O2SAT 86–100
[2024-08-31] MEDS: heparin 5,000 unit/mL INJ 1 mL 5000 UNIT SUBCUT ×2 (02:10→13:30)
[2024-08-31] MEDS: ipratropium-albuterol 3 mL Neb INHALATION ×4 (02:57→20:39)
[2024-08-31] MEDS: piperacillin-tazobactam 3.375 GM in sodium chloride 0.9% (plus) 50 ML IV ×3 (05:06→20:26)
[2024-08-31] MEDS: LORazepam 2 mg/mL INJ 1 mL IVP (05:24)
[2024-08-31] MEDS: thiamine 500 MG in sodium chloride 0.9% (100 ml) 100 ML 210 MG IV (05:57)
[2024-08-31 06:16] LABS: Basophils % 0.7 %; Eosinophils # 0.2 10^3/uL (0.0-0.8); Eosinophils % 2.6 %; Hematocrit 32.7 % (37-53); Lymphocytes # 1.1 10^3/uL (0.8-4.8); Lymphocytes % 18.2 %; Mean Corpuscular HGB Conc 26.9 g/dL (30-55); Mean Corpuscular Hemoglobin 18.1 pg (27-33); Mean Corpuscular Volume 67.1 fl (82-101); Monocytes # 0.7 10^3/uL (0.2-0.9); Monocytes % 11.3 %; Neutrophils # 3.89 10^3/uL (1.8-7.7); Neutrophils % 66.7 %; Nucleated Red Blood Cells % 0 %; Platelet Count 190 10^3/cmm (157-399); Red Blood Count 4.87 10^6/uL (3.85-5.65); Red Cell Distribution Width 20.2 % (12.1-15.1); White Blood Count 5.83 10^3/uL (3.29-11.43)
[2024-08-31 06:36] LABS: Blood Urea Nitrogen 9 mg/dL (8-23); Calcium 9.3 mg/dL (8.5-10.5); Carbon Dioxide 24 mmol/L (22-29); Chloride 100 mmol/L (98-107); Creatinine Clr Calc Pharmacy 95.7691; Glomerular Filtration Rate 95.8 mL/min (90-130); Glucose 104 mg/dL (65-115); Magnesium 1.5 mg/dL (1.7-2.3); Osmolality Calculated 285 mOsm/kg (285-295); Sodium 138 mmol/L (136-145)
[2024-08-31] MEDS: VANCOMYCIN ADD-Vantage 1,000 MG in 0.9% NaCl ADD-Vantage 250 ML 250 MG IV (08:04)
[2024-08-31] MEDS: atorvastatin 40 mg Tablet PO (08:51)
[2024-08-31] MEDS: citalopram 20 mg Tablet 40 MG PO (08:51)
[2024-08-31] MEDS: pantoprazole 40 mg SDV IVP (08:52)
[2024-08-31] MEDS: clopidogrel 75 mg Tablet PO (08:52)
[2024-08-31] MEDS: folic acid 5 mg/ml MDV 10mL 1 MG IVP (09:47)
--- NOTE | 2024-08-31 11:10 | PM.PN ---
Subjective Subjective: seen today patient awake, sitting up in bed today, does not appear agitated working with speech therapy appears sleepy however more awake than prior day Vitals/I&O/Wt Last Vital Signs Temp 97.4 F L 08/31/24 08:00 Pulse 96 08/31/24 10:00 Resp 23 H 08/31/24 10:00 BP 140/70 08/31/24 10:00 Pulse Ox 100 08/31/24 09:00 O2 Del Method BiPAP 08/31/24 08:00 FiO2 24 08/31/24 08:00 08/30/24 08/31/24 08/31/24 22:59 06:59 14:59 Intake Total 518.125 / 2285.625 158.333 / 2443.958 338.542 / 338.542 Output Total 500 / 800 1200 / 2000 Balance 18.125 / 1485.625 -1041.667 / 443.958 338.542 / 338.542 Weight last 48 hrs Weight 77.836 kg Weight 81.737 kg Weight 83.206 kg Physical Exam Narrative: General: on nc now, alert and oriented to self HEENT: Normocephalic, atraumatic, EOMI, Cardio: RRR normal S1-S2, no gross murmurs. Respiratory: Clear to auscultation bilaterally no wheezes no rhonchi at this time. GI: Abdomen soft, nontender, nondistended, bowel sounds + Extremities: No edema bilateral lower extremities, Urinary Catheter Management: Cabrera: Cath Placed During This Visit: yes Reason for Continuing Indwelling Catheter: Accurate Measurement of Urinary Output in Critically Ill Patients Urinary Catheter Date of Insertion: 08/29/24 Urinary Catheter Time of Insertion: 14:31 Data 08/31/24 05:35 08/31/24 05:35 Micro: Microbiology 08/29/24 10:34 Blood Culture - Preliminary Blood NEGATIVE TO DATE 08/29/24 10:30 Blood Culture - Preliminary Blood NEGATIVE TO DATE A&P Assessment and plan (1) Obtunded: (2) CO2 narcosis: (3) Altered mental status: (4) Alcohol abuse: (5) Lethargic: (6) Respiratory acidosis: (7) Recurrent falls: (8) CAD (coronary artery disease): Qualifiers: Coronary Disease-Associated Artery/Lesion type: [place] artery [place] vs. 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 ? Continue BiPAP at this time as patient is responding well to it. Will check another blood gas around 5 PM. If continues to improve may not need intubation. However in case of further deterioration is to be contacted regarding permission to intubate. However for now she would like to keep patient DNR/DNI as per patient's wishes and her wishes. She may change her mind later on however. ? Patient may have aspirated during the last few days since he has been more lethargic and obtunded. Order Vanco and Zosyn. Check MRSA nares. Check procalcitonin ? DuoNeb every 6 hours as needed ? Patient did receive normal saline bolus in ER. Will continue normal saline 100 cc/h. ? Patient is bradycardic with heart rate in 50s. Do not appreciate heart block on telemetry. I will hold sotalol at this time. He is on 120 twice daily. May need to reduce dose however we will hold off on it at this time secondary to low blood pressure as well. Continue to hydrate the patient. ? Blood pressure soft 90s over 50s. Continue to hold sotalol and furosemide and diltiazem. ? Continue atorvastatin, citalopram, Plavix. ? Continue galantamine 8 mg twice daily ? Patient at risk of alcohol withdrawal in next 24 to 48 hours. Last drink was 08/28. ? Patient's denies patient having any withdrawal seizures in the past. ? No history of DTs ? Order high-dose thiamine x 48 hours. 500 3 times daily x 6 doses total. ? Folic acid 1 mg daily ? I will hold off on adding a CIWA protocol at this time secondary to patient's mentation. This may be added on later pending clinical status. ? Check sputum Gram stain culture, check blood cultures ? Urinalysis not suggestive of UTI at this time. ? Place Cabrera catheter ? Check BNP, echo. ? Goals of care discussion done with the patient's . She states he did never wanted to have heroic measures and does not want to be intubated or want CPR or chest compressions. At this time she would like to elect DNR/DNI status however if the need arises for intubation she would like to be contacted again to rediscuss this. ? If patient's mentation does not improve with blood gas correction may consider MRI. CT head so far negative for bleed or stroke at this time. DNR/DNI Diet: N.p.o. at this time secondary to mental status, speech evaluation ordered. Prophylaxis: Protonix 40 daily 08/30/2024 Continue to hold sotalol at this time. Will consider giving it reduced dose. Heart rate has been in low 60s. I will continue diltiazem 60 twice daily. Blood pressure is better. No longer hypotensive. Patient did not require any Levophed. He was fluid responsive. Add CIWA protocol. Discussed with Dr. Walker over the phone. She has patient's neurologist. We will stop galantamine going forward. Continue on CIWA protocol at this time. May also use Zyprexa 5 twice daily if needed at this time. Will continue to monitor patient and add medications as needed. MRSA nares positive. Complete vancomycin x 7 days. Continue Zosyn and complete for 7 days. Order speech swallow eval. BNP 1800. Patient appears euvolemic today. 4 L urine output yesterday. Continue to hold Lasix at this time. Sputum Gram stain culture pending. Unable to obtain a sample. Blood cultures negative to date so far. Continue to monitor in ICU setting at this time. May transition back to nasal cannula. ABG reviewed from this morning. CO2 narcosis most likely secondary to sedation from marijuana taken. 08/31/2024 start amlodipine 5 mg daily metoprolol 25 bid continue ciwa protocol continue speech eval echo pending BP improved continue NC mrsa positive aspiration risk continue vanc and zosyn x7 days total, will descalate abx tomorrow PDMP PDMP Reviewed: Not Reviewed Attestations Medical Necessity Statement*: Continue to monitor in ICU for alcohol withdrawal with underlying dementia. Diagnoses Obtunded R40.1 CO2 narcosis R06.89 Altered mental status R41.82 Alcohol abuse F10.10 Lethargic R53.83 Respiratory acidosis E87.29 Recurrent falls R29.6 Coronary artery disease involving [place] coronary artery of [place] heart without angina pectoris I25.10 Coronary Disease-Associated Artery/Lesion type: [place] artery [place] vs. transplanted heart: [place] heart Associated angina: without angina Paroxysmal atrial fibrillation I48.0 Atrial fibrillation type: paroxysmal Peripheral arterial disease I73.9 Depression due to dementia F03.93 Alzheimer disease G30.9; F02.80 Diabetes mellitus E11.9
[2024-08-31] MEDS: morphine 4 mg/mL SDV 1 mL 2 MG IVP (11:27)
[2024-08-31] MEDS: magnesium sulfate premix 2 GM/50 ML PIGGYBACK IV (11:28)
[2024-08-31 11:32] LABS: Phosphorus 3.1 mg/dL (2.5-4.5)
--- NOTE | 2024-08-31 14:12 | PC.NURSE ---
weaned of bipap this am remains confused and restless want to go home monitor shows rapid rate 100 frequent pulling off lead wires
[2024-08-31 19:44] LABS: Vancomycin Trough 21.3 ug/mL (10-15)
[2024-08-31] MEDS: metoprolol tartrate 25 mg Tablet 12.5 MG PO (20:26)
[2024-08-31] MEDS: VANCOMYCIN ADD-Vantage 750 MG in 0.9% NaCl ADD-Vantage 250 ML 250 MG IV (20:39)
[2024-08-31] MEDS: LORazepam 2 mg/mL INJ 1 mL 1 MG IVP (21:53)
[2024-09-01] VITALS (30 sets, daily range): BP systolic 108–152; BP diastolic 73–103; PULSE 90–127; RESP 15–28; TEMP 36.3–36.4; O2SAT 5–96
[2024-09-01] MEDS: ipratropium-albuterol 3 mL Neb INHALATION ×3 (03:22→20:45)
[2024-09-01] MEDS: piperacillin-tazobactam 3.375 GM in sodium chloride 0.9% (plus) 50 ML IV ×3 (05:05→21:07)
[2024-09-01 05:17] LABS: Basophils % 0.7 %; Eosinophils # 0.2 10^3/uL (0.0-0.8); Hematocrit 30.7 % (37-53); Lymphocytes % 17.5 %; Mean Corpuscular HGB Conc 27.7 g/dL (30-55); Mean Corpuscular Hemoglobin 18.7 pg (27-33); Mean Corpuscular Volume 67.6 fl (82-101); Mean Platelet Volume 10.4 fL (7.4-10.4); Monocytes # 0.8 10^3/uL (0.2-0.9); Monocytes % 14.8 %; Neutrophils % 63.6 %; Nucleated Red Blood Cells % 0 %; Platelet Count 199 10^3/cmm (157-399); Red Blood Count 4.54 10^6/uL (3.85-5.65); Red Cell Distribution Width 20.4 % (12.1-15.1); White Blood Count 5.66 10^3/uL (3.29-11.43)
[2024-09-01 05:34] LABS: Anion Gap 17.5 (5-19); Blood Urea Nitrogen 6 mg/dL (8-23); Calcium 8.9 mg/dL (8.5-10.5); Carbon Dioxide 24 mmol/L (22-29); Chloride 101 mmol/L (98-107); Creatinine Clr Calc Pharmacy 95.7691; Glomerular Filtration Rate 95.8 mL/min (90-130); Glucose 124 mg/dL (65-115); Magnesium 1.7 mg/dL (1.7-2.3); Osmolality Calculated 287 mOsm/kg (285-295); Potassium 3.5 mmol/L (3.5-5.1); Sodium 139 mmol/L (136-145)
[2024-09-01] MEDS: citalopram 20 mg Tablet 40 MG PO (08:19)
[2024-09-01] MEDS: pantoprazole 40 mg SDV IVP (08:19)
[2024-09-01] MEDS: atorvastatin 40 mg Tablet PO (08:19)
[2024-09-01] MEDS: clopidogrel 75 mg Tablet PO (08:19)
[2024-09-01] MEDS: nicotine 14 mg Patch 1 PATCH TRANSDERMA (08:19)
[2024-09-01] MEDS: VANCOMYCIN ADD-Vantage 750 MG in 0.9% NaCl ADD-Vantage 250 ML 250 MG IV ×2 (08:20→19:53)
[2024-09-01] MEDS: metoprolol tartrate 25 mg Tablet PO (08:32)
--- NOTE | 2024-09-01 09:18 | ECG_ITS ---
[facility] Test Date: 2024-09-01 Pat Name: Manfred Milan Department: Room: ICU12 Gender: Male Hoistman: : 1955 Requested By: Mily Herbert Order Number: [id number] Reading MD: SIERRA DE LA ROSA Measurements Intervals [place] Rate: 110 P: 0 [place]: 0 QRS: 79 QRSD: 120 T: -31 QT: 360 QTc: 489 Interpretive Statements ATRIAL FIBRILLATION WITH RAPID VENTRICULAR RESPONSE RIGHT BUNDLE BRANCH BLOCK [120+ ms QRS DURATION, UPRIGHT V1, 40+ ms S IN I/aVL/V4/V5/V6] Compared to ECG 08/29/2024 17:14:21 Sinus bradycardia no longer present T-wave abnormality no longer present Electronically Signed On 09-04-2024 21:02:41 CDT by SIERRA DE LA ROSA [email or web address]
[2024-09-01] MEDS: folic acid 5 mg/ml MDV 10mL 1 MG IVP (09:36)
--- NOTE | 2024-09-01 10:17 | PC.SOCIAL ---
IMM Update Updated pt's on IMM. No questions voiced. Provided pt a copy. Initialed, dated, & timed a copy & placed in chart.
--- NOTE | 2024-09-01 11:40 | P.CONIM_ITS ---
<Statement entered by Courtney Saleh MD - 09/01/24 19:36> Patient was evaluated and cared for in conjunction with an advanced practice practitioner. I personally examined the patient and reviewed the chart and all pertinent data including imaging, telemetry, and laboratory results. I discussed the patient in detail with the advanced practice practitioner. Please see their note for complete H&P testing result and agreed upon plan of care for the patient. Providers/Reason For Consult 2 Consulting Physician/Specialty*: Courtney Saleh MD Reason for Consult*: Uncontrolled A-fib Requesting Physician: Dr. Herbert Attending Physician: Mily Herbert MD Primary Care Provider: Jane Lindsey MD History of Present Illness History of Present Illness Manfred Milan is a 68 year old male who presented to the ER 3 days ago with complaints of multiple falls, shortness of breath, and apparently patient was obtunded. He had evdience of hypercapnea and was placed on BiPAP. He has a history of A-fib and Alzheimer's disease. He is not on any anticoagulation for A-fib for fall risk. Apparently patient has a history of alcohol abuse as well. He has been off of the Eliquis for a while. He has a history of coronary artery disease and PAD. Echo was performed that showed normal EF at 65% with grade 2 out of 4 diastolic dysfunction, moderately elevated filling pressures no significant valvular abnormalities. He denies any chest pain at this time. O2 saturation is 94% on room air. He was also found to be anemic with current hemoglobin at 8.5. EKG shows A-fib with RVR with rates of 110 with an underlying right bundle branch block. Apparently patient was hypotensive upon admission and home medications such as Cardizem and sotalol were held due to this. Patient has uncontrolled heart rate currently 125. This is what we are consulted for. At this time he appears well compensated. Review of Systems 2 Narrative: Review of systems difficult to obtain as patient is a poor historian. He denies any chest pain or shortness of breath at this time. Denies any palpitations. Medications/Allergies Home Medications ?Medication ?Instructions ?Recorded ?Confirmed ?Last Taken ?Type atorvastatin 40 mg tablet (Lipitor) 40 ea PO DAILY 10/3008/29/24 08/29/24 History clopidogrel 75 mg tablet 75 tab PO DAILY 10/13/2208/29/24 History dapagliflozin propanediol 10 mg 10 ea PO DAILY 3 08/29/24 08/29/24 History tablet (Farxiga) metformin 1,000 mg tablet 1,000 tab PO BID 10/13/2208/29/24 History pantoprazole 40 mg tablet,delayed 40 ea PO DAILY 10/1308/29/24 08/29/24 History release tramadol 50 mg tablet 50 tab PO DAILY 10/13/2208/29/24 History trazodone 50 mg tablet 50 ea PO DAILY 10/13/2208/0908/29/24 History fluticasone furoate 100 1 inh inhalation DAILY 12/1508/29/24 08/29/24 History mcg-vilanterol 25 mcg/dose inhalation powder (Breo Ellipta) ropinirole 0.5 mg tablet 0.5 mg PO BID 12/15/2208/2908/29/24 History furosemide 40 mg tablet 40 mg PO DAILY #30 tabs 12/0808/29/24 08/29/24 Rx hydroxyzine HCl 25 mg tablet 25 mg PO QID PRN Anxiety 03/02/23 08/29/24 08/29/24 History pregabalin 75 mg capsule 75 mg PO TID 05/25/2308/29/24 History citalopram 40 mg tablet 40 mg PO DAILY #90 tabs 02/0808/29/24 08/29/24 Rx galantamine 8 mg tablet 8 mg PO BID #180 tabs 08/29/24 08/29/24 Rx sotalol 120 mg tablet 120 mg PO BID #180 tabs 02/0808/29/24 08/29/24 Rx levalbuterol tartrate 45 See Rx Instructions .Route 1 06/15/23 08/29/24 08/29/24 Rx mcg/actuation aerosol inhaler .COMPLEX #15 grams diltiazem HCl 60 mg 60 mg PO BID #90 caps 08/29/24 08/29/24 Rx capsule,extended release 12 hr furosemide 20 mg tablet 20 mg PO DAILY #90 tabs 02/11/0108/29/24 08/28/24 Rx albuterol sulfate 90 mcg/actuation 2 inh inhalation Q6 H 08/29/24 08/29/24 08/29/24 History aerosol inhaler hydrocodone 5 mg-acetaminophen 325 1 tab PO Q8H 08/29/24 08/29/24 History mg tablet potassium chloride 20 mEq 20 meq PO QAM 08/29/2408/2908/29/24 History tablet,extended release Allergies Allergy/AdvReac Type Severity Reaction Status Date / Time oxycodone Allergy Unknown Verified 08/29/24 10:23 Current Medications Generic Name Dose Route Start Last Admin Trade Name Freq PRN Reason Stop Dose Admin Albuterol/Ipratropium 3 ml 08/29/24 20:00 09/01/24 07:58 Ipratropium-Albuterol 3 Ml Neb INHALATION Not Given Q6H.RESP ELLE Albuterol/Ipratropium 3 ml 08/29/24 14:45 08/29/24 14:52 Ipratropium-Albuterol 3 Ml Neb INHALATION 3 ml Q4H.RESPIRATORY PRN Administration SHORTNESS OF BREATH Atorvastatin Calcium 40 mg 08/30/24 09:00 09/01/24 08:19 Atorvastatin 40 Mg Tablet PO 40 mg DAILY ELLE Administration Citalopram Hydrobromide 40 mg 08/30/24 09:00 09/01/24 08:19 Citalopram 20 Mg Tablet PO 40 mg DAILY ELLE Administration Clopidogrel Bisulfate 75 mg 08/30/24 09:00 09/01/24 08:19 Clopidogrel 75 Mg Tablet PO 75 mg DAILY ELLE Administration Folic Acid 1 mg 08/29/24 14:29 09/01/24 09:36 Folic Acid 5 Mg/Ml Mdv 10ml IVP 1 mg DAILY ELLE Administration Heparin Sodium (Porcine) 5,000 unit 08/29/24 14:00 09/01/24 02:53 Heparin 5,000 Unit/Ml Inj 1 Ml SUBCUT Not Given Q12H ELLE Piperacillin Sod/Tazobactam 50 mls @ 12.5 mls/hr 08/29/24 21:00 09/01/24 05:05 Sod 3.375 gm/ Sodium Chloride IV 12.5 mls/hr Q8H ELLE Administration Vancomycin HCl 750 mg/ Sodium 250 mls @ 250 mls/hr 08/31/24 20:30 09/01/24 08:20 Chloride IV 250 mls/hr Q12H ELLE Administration Lorazepam 1 mg 08/31/24 14:06 08/31/24 21:53 Lorazepam 2 Mg/Ml Inj 1 Ml IVP 1 mg PRN PRN Administration WITHDRAWAL Protocol Nicotine 1 patch 09/01/24 09:00 09/01/24 08:19 Nicotine 14 Mg Patch TRANSDERMA 1 patch DAILY ELLE Administration Pantoprazole Sodium 40 mg 08/30/24 09:00 09/01/24 08:19 Pantoprazole 40 Mg Sdv IVP 40 mg DAILY ELLE Administration PFSH Acute 2 PFSH: Medical History CAD (coronary artery disease) Atrial fibrillation Social History Smoking and tobacco/nicotine status: current every day tobacco/nicotine user (smoke 2-2.5 packs a day) cigarettes Alcohol intake: current Substance/Drug Use: never Vitals/I&O/Wt Last Vital Signs Temp 97.6 F 09/01/24 05:00 Pulse 125 H 09/01/24 08:00 Resp 18 09/01/24 08:00 BP 119/73 09/01/24 08:00 Pulse Ox 94 09/01/24 07:59 O2 Del Method Room Air 09/01/24 07:59 FiO2 24 08/31/24 08:00 08/31/24 09/01/24 09/01/24 22:59 06:59 14:59 Intake Total 350 / 838.542 150 / 988.542 Output Total 850 / 850 850 / 1700 Balance -500 / -11.458 -700 / -711.458 Weight last 48 hrs Weight 169 lb 8 oz Weight 171 lb 9.6 oz Physical Exam 2 Narrative: General: No apparent distress, healthy appearing, well nourished HENMT: normoceophalic Muskuloskeletal: Full ROM Lymphatic: no lymphedema noted Respiratory: Normal respiratory effort, expiratory wheezes bilateral lower lobes, no use of accessory muscles Cardio: No JVD, regular rate, regular rhythm, S1 S2 normal, no murmurs, peripheral pulses 2+ radial palpated bilaterally GI: Normal to inspection, nondistended Extremities: Full ROM, normal, normal capillary refill, no cyanosis or edema Neuro: Alert and oriented x3 Psych: Affect normal Skin: No rashes or lesions noted, no wounds Urinary Catheter Management: Cabrera: Cath Placed During This Visit: yes Reason for Continuing Indwelling Catheter: Accurate Measurement of Urinary Output in Critically Ill Patients Urinary Catheter Date of Insertion: 08/29/24 Urinary Catheter Time of Insertion: 14:31 Data 09/01/24 05:03 09/01/24 05:03 A&P Assessment and plan (1) Obtunded: (2) CO2 narcosis: (3) Altered mental status: (4) Alcohol abuse: (5) Lethargic: (6) Respiratory acidosis: (7) Recurrent falls: (8) CAD (coronary artery disease): Qualifiers: Coronary Disease-Associated Artery/Lesion type: [place] artery [place] vs. 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 Heart rate is currently uncontrolled but patient is asymptomatic. No indication for cardioversion at this time. We will recommend stopping metoprolol restarting sotalol at 60 mg twice daily. We will increase to patient's response. Blood pressure is now stable at 119/73. Will continue to monitor. Shortness of breath has improved, most likely caused by COPD exacerbation with CO2 retention. Thank you, Dr. herbert, for allowing us to care for this very pleasant 68 year old gentleman. PDMP PDMP Reviewed: Not Reviewed Consult Attestations 2 Medical Necessity Statement: Deferred to primary Coding Level of Care Code Acute Code for Chg Fwd Diagnoses Obtunded R40.1 CO2 narcosis R06.89 Altered mental status R41.82 Alcohol abuse F10.10 Lethargic R53.83 Respiratory acidosis E87.29 Recurrent falls R29.6 Coronary artery disease involving [place] coronary artery of [place] heart without angina pectoris I25.10 Coronary Disease-Associated Artery/Lesion type: [place] artery [place] vs. transplanted heart: [place] heart Associated angina: without angina Paroxysmal atrial fibrillation I48.0 Atrial fibrillation type: paroxysmal Peripheral arterial disease I73.9 Depression due to dementia F03.93 Alzheimer disease G30.9; F02.80 Diabetes mellitus E11.9
[2024-09-01] MEDS: SOTALOL HCL 120 MG TABLET 60 MG PO ×2 (12:44→21:06)
--- NOTE | 2024-09-01 13:26 | P.PN_ITS ---
Subjective 2 Subjective: Seen this morning. Patient mental status appears to be back to baseline. He is much more coherent able to speak to me and answer questions. He follows all commands. Is pleasant. He is in A-fib with RVR with heart rates elevated. Cardiology restarted sotalol. Patient may require amiodarone going forward. Vitals/I&O/Wt Last Vital Signs Temp 97.6 F 09/01/24 05:00 Pulse 107 H 09/01/24 13:24 Resp 16 09/01/24 13:24 BP 119/73 09/01/24 12:00 Pulse Ox 94 09/01/24 13:24 O2 Del Method Room Air 09/01/24 13:24 FiO2 24 08/31/24 08:00 08/31/24 09/01/24 09/01/24 22:59 06:59 14:59 Intake Total 350 / 838.542 150 / 988.542 50 / 50 Output Total 850 / 850 850 / 1700 Balance -500 / -11.458 -700 / -711.458 50 / 50 Weight last 48 hrs Weight 76.884 kg Weight 77.836 kg Physical Exam 2 Narrative: General: on nc now, alert and oriented to self HEENT: Normocephalic, atraumatic, EOMI, Cardio: RRR normal S1-S2, no gross murmurs. Respiratory: Clear to auscultation bilaterally no wheezes no rhonchi at this time. GI: Abdomen soft, nontender, nondistended, bowel sounds + Extremities: No edema bilateral lower extremities, Urinary Catheter Management: Cabrera: Cath Placed During This Visit: yes Reason for Continuing Indwelling Catheter: Accurate Measurement of Urinary Output in Critically Ill Patients Urinary Catheter Date of Insertion: 08/29/24 Urinary Catheter Time of Insertion: 14:31 Data 09/01/24 05:03 09/01/24 05:03 A&P Assessment and plan (1) Obtunded: (2) CO2 narcosis: (3) Altered mental status: (4) Alcohol abuse: (5) Lethargic: (6) Respiratory acidosis: (7) Recurrent falls: (8) CAD (coronary artery disease): Qualifiers: Associated angina: without angina Coronary Disease-Associated Artery/Lesion type: [place] artery [place] vs. 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 ? Continue BiPAP at this time as patient is responding well to it. Will check another blood gas around 5 PM. If continues to improve may not need intubation. However in case of further deterioration is to be contacted regarding permission to intubate. However for now she would like to keep patient DNR/DNI as per patient's wishes and her wishes. She may change her mind later on however. ? Patient may have aspirated during the last few days since he has been more lethargic and obtunded. Order Vanco and Zosyn. Check MRSA nares. Check procalcitonin ? DuoNeb every 6 hours as needed ? Patient did receive normal saline bolus in ER. Will continue normal saline 100 cc/h. ? Patient is bradycardic with heart rate in 50s. Do not appreciate heart block on telemetry. I will hold sotalol at this time. He is on 120 twice daily. May need to reduce dose however we will hold off on it at this time secondary to low blood pressure as well. Continue to hydrate the patient. ? Blood pressure soft 90s over 50s. Continue to hold sotalol and furosemide and diltiazem. ? Continue atorvastatin, citalopram, Plavix. ? Continue galantamine 8 mg twice daily ? Patient at risk of alcohol withdrawal in next 24 to 48 hours. Last drink was 08/28. ? Patient's denies patient having any withdrawal seizures in the past. ? No history of DTs ? Order high-dose thiamine x 48 hours. 500 3 times daily x 6 doses total. ? Folic acid 1 mg daily ? I will hold off on adding a CIWA protocol at this time secondary to patient's mentation. This may be added on later pending clinical status. ? Check sputum Gram stain culture, check blood cultures ? Urinalysis not suggestive of UTI at this time. ? Place Cabrera catheter ? Check BNP, echo. ? Goals of care discussion done with the patient's . She states he did never wanted to have heroic measures and does not want to be intubated or want CPR or chest compressions. At this time she would like to elect DNR/DNI status however if the need arises for intubation she would like to be contacted again to rediscuss this. ? If patient's mentation does not improve with blood gas correction may consider MRI. CT head so far negative for bleed or stroke at this time. DNR/DNI Diet: N.p.o. at this time secondary to mental status, speech evaluation ordered. Prophylaxis: Protonix 40 daily 08/30/2024 Continue to hold sotalol at this time. Will consider giving it reduced dose. Heart rate has been in low 60s. I will continue diltiazem 60 twice daily. Blood pressure is better. No longer hypotensive. Patient did not require any Levophed. He was fluid responsive. Add CIWA protocol. Discussed with Dr. Walker over the phone. She has patient's neurologist. We will stop galantamine going forward. Continue on CIWA protocol at this time. May also use Zyprexa 5 twice daily if needed at this time. Will continue to monitor patient and add medications as needed. MRSA nares positive. Complete vancomycin x 7 days. Continue Zosyn and complete for 7 days. Order speech swallow eval. BNP 1800. Patient appears euvolemic today. 4 L urine output yesterday. Continue to hold Lasix at this time. Sputum Gram stain culture pending. Unable to obtain a sample. Blood cultures negative to date so far. Continue to monitor in ICU setting at this time. May transition back to nasal cannula. ABG reviewed from this morning. CO2 narcosis most likely secondary to sedation from marijuana taken. 08/31/2024 start amlodipine 5 mg daily metoprolol 25 bid continue ciwa protocol continue speech eval echo pending BP improved continue NC mrsa positive aspiration risk continue vanc and zosyn x7 days total, will descalate abx tomorrow 09/01/2024 Continue metoprolol 25 twice daily Continue CIWA protocol Continue sotalol 60 twice daily as per cardiology recommendations De-escalate antibiotics to ceftriaxone azithromycin today. Patient is now on room air. Plan to restart Lyrica, ropinirole, trazodone. Stop galantamine going forward as per discussion with neurology Continue clopidogrel, citalopram Transfer to [facility] today. PT OT Discussed A-fib medications with clerical support specialist over the phone. PDMP PDMP Reviewed: Not Reviewed Attestations 2 Medical Necessity Statement*: A-fib with RVR. Titrate medications Mental status improving. Possible discharge home in 40 to 72 hours.. Diagnoses Obtunded R40.1 CO2 narcosis R06.89 Altered mental status R41.82 Alcohol abuse F10.10 Lethargic R53.83 Respiratory acidosis E87.29 Recurrent falls R29.6 Coronary artery disease involving [place] coronary artery of [place] heart without angina pectoris I25.10 Associated angina: without angina Coronary Disease-Associated Artery/Lesion type: [place] artery [place] vs. transplanted heart: [place] heart Paroxysmal atrial fibrillation I48.0 Atrial fibrillation type: paroxysmal Peripheral arterial disease I73.9 Depression due to dementia F03.93 Alzheimer disease G30.9; F02.80 Diabetes mellitus E11.9
[2024-09-01] MEDS: heparin 5,000 unit/mL INJ 1 mL 5000 UNIT SUBCUT (16:34)
[2024-09-01] MEDS: pregabalin 75 mg Capsule PO ×2 (16:34→21:07)
[2024-09-02] VITALS (25 sets, daily range): BP systolic 95–137; BP diastolic 59–92; PULSE 82–121; RESP 12–21; TEMP 36.2–36.9; O2SAT 94–99
[2024-09-02] MEDS: heparin 5,000 unit/mL INJ 1 mL 5000 UNIT SUBCUT ×2 (01:37→14:06)
[2024-09-02] MEDS: ipratropium-albuterol 3 mL Neb INHALATION ×4 (02:51→20:29)
[2024-09-02] MEDS: piperacillin-tazobactam 3.375 GM in sodium chloride 0.9% (plus) 50 ML IV ×3 (05:42→20:51)
[2024-09-02 07:21] LABS: Basophils # 0.1 10^3/uL (0.0-0.1); Basophils % 1.1 %; Eosinophils # 0.3 10^3/uL (0.0-0.8); Eosinophils % 4.4 %; Hematocrit 32.1 % (37-53); Lymphocytes # 1.1 10^3/uL (0.8-4.8); Lymphocytes % 18.5 %; Mean Corpuscular HGB Conc 27.4 g/dL (30-55); Mean Corpuscular Hemoglobin 18.3 pg (27-33); Mean Corpuscular Volume 66.7 fl (82-101); Mean Platelet Volume 9.6 fL (7.4-10.4); Monocytes # 0.8 10^3/uL (0.2-0.9); Monocytes % 14.2 %; Neutrophils % 61.4 %; Nucleated Red Blood Cells % 0 %; Platelet Count 198 10^3/cmm (157-399); Red Blood Count 4.81 10^6/uL (3.85-5.65); Red Cell Distribution Width 21.1 % (12.1-15.1); White Blood Count 5.69 10^3/uL (3.29-11.43)
--- NOTE | 2024-09-02 07:30 | P.PN_ITS ---
Subjective 2 Subjective: Seen this AM doing very well. HR stable on sotolol. no decompensations or elevated HR no overnight issues intellectually coherent but has difficulty recalling his medication dosages and why he is in the hospital Medications: Reviewed: Yes Vitals/I&O/Wt Last Vital Signs Temp 97.2 F L 09/02/24 00:00 Pulse 83 09/02/24 06:00 Resp 17 09/02/24 06:00 BP 95/72 09/02/24 06:00 Pulse Ox 95 09/02/24 06:00 O2 Del Method Room Air 09/02/24 06:00 FiO2 24 08/31/24 08:00 09/01/24 09/02/24 09/02/24 22:59 06:59 14:59 Intake Total 570 / 620 50 / 670 Output Total 550 / 550 375 / 925 Balance -325 / -255 Weight last 48 hrs Weight 160 lb 12.8 oz Weight 169 lb 8 oz Physical Exam 2 Narrative: General: on nc now, alert and oriented to self HEENT: Normocephalic, atraumatic, EOMI, Cardio: RRR normal S1-S2, no gross murmurs. Respiratory: Clear to auscultation bilaterally no wheezes no rhonchi at this time. GI: Abdomen soft, nontender, nondistended, bowel sounds + Extremities: No edema bilateral lower extremities, Urinary Catheter Management: Cabrera: Cath Placed During This Visit: yes Reason for Continuing Indwelling Catheter: Accurate Measurement of Urinary Output in Critically Ill Patients Urinary Catheter Date of Insertion: 08/29/24 Urinary Catheter Time of Insertion: 14:31 Data 09/02/24 07:15 09/02/24 07:15 A&P Assessment and plan (1) Obtunded: resolved (2) CO2 narcosis: improving (3) Altered mental status: improving (4) Alcohol abuse: CIWA protocol (5) Respiratory acidosis: (6) Recurrent falls: (7) CAD (coronary artery disease): Qualifiers: Associated angina: without angina Coronary Disease-Associated Artery/Lesion type: [place] artery [place] vs. transplanted heart: [place] heart Qualified Code(s): I25.10 - Atherosclerotic heart disease of [place] coronary artery without angina pectoris (8) Atrial fibrillation: Qualifiers: Atrial fibrillation type: paroxysmal Qualified Code(s): I48.0 - Paroxysmal atrial fibrillation (9) Peripheral arterial disease: (10) Depression due to dementia: (11) Alzheimer disease: (12) Diabetes mellitus: Plan #Altered mental status #CO2 narcosis #Pneumonia #Alcohol abuse #History of COPD #History of Alzheimer dementia, unable to do ADLs at baseline #History of atrial fibrillation, takes sotalol #Peripheral arterial disease #History of hip fracture #CAD status post PCI, 15 stents as per ? ? Continue BiPAP at this time as patient is responding well to it. Will check another blood gas around 5 PM. If continues to improve may not need intubation. However in case of further deterioration is to be contacted regarding permission to intubate. However for now she would like to keep patient DNR/DNI as per patient's wishes and her wishes. She may change her mind later on however. ? Patient may have aspirated during the last few days since he has been more lethargic and obtunded. Order Vanco and Zosyn. Check MRSA nares. Check procalcitonin ? DuoNeb every 6 hours as needed ? Patient did receive normal saline bolus in ER. Will continue normal saline 100 cc/h. ? Patient is bradycardic with heart rate in 50s. Do not appreciate heart block on telemetry. I will hold sotalol at this time. He is on 120 twice daily. May need to reduce dose however we will hold off on it at this time secondary to low blood pressure as well. Continue to hydrate the patient. ? Blood pressure soft 90s over 50s. Continue to hold sotalol and furosemide and diltiazem. ? Continue atorvastatin, citalopram, Plavix. ? Continue galantamine 8 mg twice daily ? Patient at risk of alcohol withdrawal in next 24 to 48 hours. Last drink was 08/28. ? Patient's denies patient having any withdrawal seizures in the past. ? No history of DTs ? Order high-dose thiamine x 48 hours. 500 3 times daily x 6 doses total. ? Folic acid 1 mg daily ? I will hold off on adding a CIWA protocol at this time secondary to patient's mentation. This may be added on later pending clinical status. ? Check sputum Gram stain culture, check blood cultures ? Urinalysis not suggestive of UTI at this time. ? Place Cabrera catheter ? Check BNP, echo. ? Goals of care discussion done with the patient's . She states he did never wanted to have heroic measures and does not want to be intubated or want CPR or chest compressions. At this time she would like to elect DNR/DNI status however if the need arises for intubation she would like to be contacted again to rediscuss this. ? If patient's mentation does not improve with blood gas correction may consider MRI. CT head so far negative for bleed or stroke at this time. DNR/DNI Diet: N.p.o. at this time secondary to mental status, speech evaluation ordered. Prophylaxis: Protonix 40 daily 08/30/2024 Continue to hold sotalol at this time. Will consider giving it reduced dose. Heart rate has been in low 60s. I will continue diltiazem 60 twice daily. Blood pressure is better. No longer hypotensive. Patient did not require any Levophed. He was fluid responsive. Add CIWA protocol. Discussed with Dr. Walker over the phone. She has patient's neurologist. We will stop galantamine going forward. Continue on CIWA protocol at this time. May also use Zyprexa 5 twice daily if needed at this time. Will continue to monitor patient and add medications as needed. MRSA nares positive. Complete vancomycin x 7 days. Continue Zosyn and complete for 7 days. Order speech swallow eval. BNP 1800. Patient appears euvolemic today. 4 L urine output yesterday. Continue to hold Lasix at this time. Sputum Gram stain culture pending. Unable to obtain a sample. Blood cultures negative to date so far. Continue to monitor in ICU setting at this time. May transition back to nasal cannula. ABG reviewed from this morning. CO2 narcosis most likely secondary to sedation from marijuana taken. 08/31/2024 start amlodipine 5 mg daily metoprolol 25 bid continue ciwa protocol continue speech eval echo pending BP improved continue NC mrsa positive aspiration risk continue vanc and zosyn x7 days total, will descalate abx tomorrow 09/01/2024 Continue metoprolol 25 twice daily Continue CIWA protocol - no Sx Continue sotalol 60 twice daily as per cardiology recommendations De-escalate antibiotics to ceftriaxone azithromycin today. Patient is now on room air. Plan to restart Lyrica, ropinirole, trazodone. Stop galantamine going forward as per discussion with neurology Continue clopidogrel, citalopram Transfer to med-surg today. PT OT Discussed A-fib medications with back wedger over the phone. 09/02/24 -CIWA protocol -followed by cards. STOPPED lopressor 25mg biD, restarted on sotolol 60mg BID -Abx:currently vanc and zosyn. will de-escalate to rocephin and azithro. Cx neg thus far -plavix and clopidogrel -heparin BID -will transfer to [facility] -NPO. not cleard by speech yet for intake. PDMP PDMP Reviewed: Not Reviewed Attestations 2 Medical Necessity Statement*: will require 2 overnight stays due to ICU critical illness Coding Level of Care Code 76252 Diagnoses Obtunded R40.1 CO2 narcosis R06.89 Altered mental status R41.82 Alcohol abuse F10.10 Respiratory acidosis E87.29 Recurrent falls R29.6 Coronary artery disease involving [place] coronary artery of [place] heart without angina pectoris I25.10 Associated angina: without angina Coronary Disease-Associated Artery/Lesion type: [place] artery [place] vs. transplanted heart: [place] heart Paroxysmal atrial fibrillation I48.0 Atrial fibrillation type: paroxysmal Peripheral arterial disease I73.9 Depression due to dementia F03.93 Alzheimer disease G30.9; F02.80 Diabetes mellitus E11.9
[2024-09-02 07:46] LABS: Anion Gap 19.3 (5-19); Blood Urea Nitrogen 5 mg/dL (8-23); Calcium 8.9 mg/dL (8.5-10.5); Carbon Dioxide 23 mmol/L (22-29); Chloride 102 mmol/L (98-107); Creatinine Clr Calc Pharmacy 93.3542; Glomerular Filtration Rate 95.8 mL/min (90-130); Glucose 104 mg/dL (65-115); Magnesium 1.6 mg/dL (1.7-2.3); Osmolality Calculated 290 mOsm/kg (285-295); Potassium 3.3 mmol/L (3.5-5.1); Sodium 141 mmol/L (136-145); Vancomycin Trough 19.4 ug/mL (10-15)
[2024-09-02] MEDS: citalopram 20 mg Tablet 40 MG PO (07:47)
[2024-09-02] MEDS: pantoprazole 40 mg SDV IVP (07:48)
[2024-09-02] MEDS: pregabalin 75 mg Capsule PO ×3 (07:48→20:48)
[2024-09-02] MEDS: trazodone 50 mg Tablet PO ×2 (07:48→22:19)
[2024-09-02] MEDS: VANCOMYCIN ADD-Vantage 750 MG in 0.9% NaCl ADD-Vantage 250 ML 250 MG IV (07:49)
[2024-09-02] MEDS: nicotine 14 mg Patch 1 PATCH TRANSDERMA (07:49)
[2024-09-02] MEDS: atorvastatin 40 mg Tablet PO (07:49)
[2024-09-02] MEDS: clopidogrel 75 mg Tablet PO (07:49)
[2024-09-02] MEDS: SOTALOL HCL 120 MG TABLET 60 MG PO (07:49)
[2024-09-02] MEDS: folic acid 5 mg/ml MDV 10mL 1 MG IVP (07:52)
[2024-09-02 08:03] LABS: Slide Review Slide Review Perform
[2024-09-02] MEDS: cefTRIAXone 1,000 mg SDV 1000 MG IVP (11:52)
[2024-09-02] MEDS: azithromycin 250 mg Tablet PO (11:52)
--- NOTE | 2024-09-02 13:58 | PC.NURSE ---
Patient was seen chewing on second digit on right hand that is necrotic. The necrotic piece was dangling from finger. Patient was advised to stop chewing on finger.
--- NOTE | 2024-09-02 14:03 | PM.PN ---
Subjective Subjective: Patient is feeling better heart rate is steadily improving Medications: Reviewed: Yes Vitals/I&O/Wt Last Vital Signs Temp 97.2 F L 09/02/24 00:00 Pulse 109 H 09/02/24 13:25 Resp 18 09/02/24 13:19 BP 132/86 09/02/24 11:00 Pulse Ox 96 09/02/24 13:19 O2 Del Method Room Air 09/02/24 13:19 FiO2 24 08/31/24 08:00 09/01/24 09/02/24 09/02/24 22:59 06:59 14:59 Intake Total 570 / 620 50 / 670 50 / 50 Output Total 550 / 550 375 / 925 Balance 20 / -325 / -255 50 / 50 Weight last 48 hrs Weight 160 lb 12.8 oz Weight 169 lb 8 oz Physical Exam Const: OTHER: GENERAL: Patient is alert, awake and oriented x3. HEART: Regular S1 and S2. No murmur, rub or gallop. LUNGS: Clear to auscultate bilaterally. CENTRAL NERVOUS SYSTEM: Grossly nonfocal. EXTREMITIES: Lower extremities with out edema bilaterally. Urinary Catheter Management: Cabrera: Cath Placed During This Visit: yes Reason for Continuing Indwelling Catheter: Accurate Measurement of Urinary Output in Critically Ill Patients Urinary Catheter Date of Insertion: 08/29/24 Urinary Catheter Time of Insertion: 14:31 Data 09/02/24 07:15 09/02/24 07:15 A&P Assessment and plan (1) Obtunded: (2) CO2 narcosis: (3) Altered mental status: (4) Alcohol abuse: (5) Lethargic: (6) Respiratory acidosis: (7) Recurrent falls: (8) CAD (coronary artery disease): Qualifiers: Coronary Disease-Associated Artery/Lesion type: [place] artery [place] vs. 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 Coding Level of Care Code Acute Code for Chg Fwd Diagnoses Obtunded R40.1 CO2 narcosis R06.89 Altered mental status R41.82 Alcohol abuse F10.10 Lethargic R53.83 Respiratory acidosis E87.29 Recurrent falls R29.6 Coronary artery disease involving [place] coronary artery of [place] heart without angina pectoris I25.10 Coronary Disease-Associated Artery/Lesion type: [place] artery [place] vs. transplanted heart: [place] heart Associated angina: without angina Paroxysmal atrial fibrillation I48.0 Atrial fibrillation type: paroxysmal Peripheral arterial disease I73.9 Depression due to dementia F03.93 Alzheimer disease G30.9; F02.80 Diabetes mellitus E11.9
[2024-09-02 17:00] LABS: Glucose Point of Care 117 mg/dL (70-110)
[2024-09-02] MEDS: ropinirole 0.25 mg Tablet 0.5 MG PO (18:02)
[2024-09-02 20:20] LABS: Glucose Point of Care 105 mg/dL (70-110)
[2024-09-02] MEDS: budesonide 0.5 mg/2 mL Neb INHALATION (20:29)
[2024-09-02] MEDS: hyDROXYzine 25 mg Capsule PO (20:48)
[2024-09-02] MEDS: sotalol 80 mg Tablet PO (20:48)
[2024-09-03] VITALS (12 sets, daily range): BP systolic 95–126; BP diastolic 62–80; PULSE 78–111; RESP 14–24; TEMP 36.5–37; O2SAT 95–100
[2024-09-03] MEDS: heparin 5,000 unit/mL INJ 1 mL 5000 UNIT SUBCUT ×2 (01:38→14:18)
[2024-09-03] MEDS: piperacillin-tazobactam 3.375 GM in sodium chloride 0.9% (plus) 50 ML IV ×3 (04:45→20:28)
[2024-09-03 06:24] LABS: Glucose Point of Care 91 mg/dL (70-110)
[2024-09-03] MEDS: ipratropium-albuterol 3 mL Neb INHALATION ×3 (07:48→20:46)
[2024-09-03] MEDS: budesonide 0.5 mg/2 mL Neb INHALATION ×2 (07:49→20:46)
--- NOTE | 2024-09-03 09:27 | P.PN_ITS ---
Subjective 2 Subjective: no events overnight sotolol increased to 80mg this AM, HR of 111 just prior to taking medication states he is feeling well. was so hungry he chewed off necrotic tissue from RIGHT intex finger. hungry but failed speech swallow test yday denies CP, palpitations. SOB Medications: Reviewed: Yes Vitals/I&O/Wt Last Vital Signs Temp 98.6 F 09/03/24 08:00 Pulse 111 H 09/03/24 08:00 Resp 16 09/03/24 08:00 BP 126/80 09/03/24 08:00 Pulse Ox 100 09/03/24 08:00 O2 Del Method Room Air 09/03/24 08:00 FiO2 24 08/31/24 08:00 09/02/24 09/03/24 09/03/24 22:59 06:59 14:59 Intake Total 300 / 350 50 / 400 Output Total 350 / 350 200 / 550 Balance -50 / 0 -150 / -150 Weight last 48 hrs Weight 154 lb 4.8 oz Weight 160 lb 12.8 oz Physical Exam 2 Narrative: General: on nc now, alert and oriented to self HEENT: Normocephalic, atraumatic, EOMI, Cardio: RRR normal S1-S2, no gross murmurs. Respiratory: Clear to auscultation bilaterally no wheezes no rhonchi at this time. GI: Abdomen soft, nontender, nondistended, bowel sounds + Extremities: No edema bilateral lower extremities skin: granulation tissue on R index distal finger, no signs of necrosis or infection Urinary Catheter Management: Cabrera: Cath Placed During This Visit: yes Reason for Continuing Indwelling Catheter: Accurate Measurement of Urinary Output in Critically Ill Patients Urinary Catheter Date of Insertion: 08/29/24 Urinary Catheter Time of Insertion: 14:31 Data 09/02/24 07:15 09/02/24 07:15 A&P Assessment and plan (1) Obtunded: resolved (2) CO2 narcosis: improving (3) Altered mental status: improving (4) Alcohol abuse: CIWA protocol (5) Respiratory acidosis: (6) Recurrent falls: (7) CAD (coronary artery disease): Qualifiers: Associated angina: without angina Coronary Disease-Associated Artery/Lesion type: [place] artery [place] vs. 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 ? Continue BiPAP at this time as patient is responding well to it. Will check another blood gas around 5 PM. If continues to improve may not need intubation. However in case of further deterioration is to be contacted regarding permission to intubate. However for now she would like to keep patient DNR/DNI as per patient's wishes and her wishes. She may change her mind later on however. ? Patient may have aspirated during the last few days since he has been more lethargic and obtunded. Order Vanco and Zosyn. Check MRSA nares. Check procalcitonin ? DuoNeb every 6 hours as needed ? Patient did receive normal saline bolus in ER. Will continue normal saline 100 cc/h. ? Patient is bradycardic with heart rate in 50s. Do not appreciate heart block on telemetry. I will hold sotalol at this time. He is on 120 twice daily. May need to reduce dose however we will hold off on it at this time secondary to low blood pressure as well. Continue to hydrate the patient. ? Blood pressure soft 90s over 50s. Continue to hold sotalol and furosemide and diltiazem. ? Continue atorvastatin, citalopram, Plavix. ? Continue galantamine 8 mg twice daily ? Patient at risk of alcohol withdrawal in next 24 to 48 hours. Last drink was 08/28. ? Patient's denies patient having any withdrawal seizures in the past. ? No history of DTs ? Order high-dose thiamine x 48 hours. 500 3 times daily x 6 doses total. ? Folic acid 1 mg daily ? I will hold off on adding a CIWA protocol at this time secondary to patient's mentation. This may be added on later pending clinical status. ? Check sputum Gram stain culture, check blood cultures ? Urinalysis not suggestive of UTI at this time. ? Place Cabrera catheter ? Check BNP, echo. ? Goals of care discussion done with the patient's . She states he did never wanted to have heroic measures and does not want to be intubated or want CPR or chest compressions. At this time she would like to elect DNR/DNI status however if the need arises for intubation she would like to be contacted again to rediscuss this. ? If patient's mentation does not improve with blood gas correction may consider MRI. CT head so far negative for bleed or stroke at this time. DNR/DNI Diet: N.p.o. at this time secondary to mental status, speech evaluation ordered. Prophylaxis: Protonix 40 daily 08/30/2024 Continue to hold sotalol at this time. Will consider giving it reduced dose. Heart rate has been in low 60s. I will continue diltiazem 60 twice daily. Blood pressure is better. No longer hypotensive. Patient did not require any Levophed. He was fluid responsive. Add CIWA protocol. Discussed with Dr. Walker over the phone. She has patient's neurologist. We will stop galantamine going forward. Continue on CIWA protocol at this time. May also use Zyprexa 5 twice daily if needed at this time. Will continue to monitor patient and add medications as needed. MRSA nares positive. Complete vancomycin x 7 days. Continue Zosyn and complete for 7 days. Order speech swallow eval. BNP 1800. Patient appears euvolemic today. 4 L urine output yesterday. Continue to hold Lasix at this time. Sputum Gram stain culture pending. Unable to obtain a sample. Blood cultures negative to date so far. Continue to monitor in ICU setting at this time. May transition back to nasal cannula. ABG reviewed from this morning. CO2 narcosis most likely secondary to sedation from marijuana taken. 08/31/2024 start amlodipine 5 mg daily metoprolol 25 bid continue ciwa protocol continue speech eval echo pending BP improved continue NC mrsa positive aspiration risk continue vanc and zosyn x7 days total, will descalate abx tomorrow 09/01/2024 Continue metoprolol 25 twice daily Continue CIWA protocol - no Sx Continue sotalol 60 twice daily as per cardiology recommendations De-escalate antibiotics to ceftriaxone azithromycin today. Patient is now on room air. Plan to restart Lyrica, ropinirole, trazodone. Stop galantamine going forward as per discussion with neurology Continue clopidogrel, citalopram Transfer to med-surg today. PT OT Discussed A-fib medications with lubricator granulator over the phone. 09/02/24 -CIWA protocol -followed by cards. STOPPED lopressor 25mg biD, restarted on sotolol 60mg BID -Abx:currently vanc and zosyn. will de-escalate to rocephin and azithro. Cx neg thus far -plavix and clopidogrel -heparin BID -will transfer to CSU -NPO. not cleard by speech yet for intake. -moved to CSU yesterday -sotolol 80mg BID. likely to uptitrate -rocephin and azithro. Cx neg thus far -followed by Cardiology -plavix -heparin BID -NPO. will be evaluated by speech this AM PDMP PDMP Reviewed: Not Reviewed Attestations 2 Medical Necessity Statement*: will require 2 overnight stays for tachycardia management Coding Level of Care Code 76016 Diagnoses Obtunded R40.1 CO2 narcosis R06.89 Altered mental status R41.82 Alcohol abuse F10.10 Respiratory acidosis E87.29 Recurrent falls R29.6 Coronary artery disease involving [place] coronary artery of [place] heart without angina pectoris I25.10 Associated angina: without angina Coronary Disease-Associated Artery/Lesion type: [place] artery [place] vs. transplanted heart: [place] heart Paroxysmal atrial fibrillation I48.0 Atrial fibrillation type: paroxysmal Peripheral arterial disease I73.9 Depression due to dementia F03.93 Alzheimer disease G30.9; F02.80 Diabetes mellitus E11.9
[2024-09-03] MEDS: azithromycin 250 mg Tablet PO (09:28)
[2024-09-03] MEDS: atorvastatin 40 mg Tablet PO (09:28)
[2024-09-03] MEDS: ropinirole 0.25 mg Tablet 0.5 MG PO ×2 (09:28→17:33)
[2024-09-03] MEDS: pregabalin 75 mg Capsule PO ×3 (09:28→20:29)
[2024-09-03] MEDS: citalopram 20 mg Tablet 40 MG PO (09:29)
[2024-09-03] MEDS: cefTRIAXone 1,000 mg SDV 1000 MG IVP (09:32)
[2024-09-03] MEDS: nicotine 14 mg Patch 1 PATCH TRANSDERMA (09:32)
[2024-09-03 10:02] LABS: Basophils # 0.1 10^3/uL (0.0-0.1); Eosinophils # 0.2 10^3/uL (0.0-0.8); Eosinophils % 3.6 %; Hematocrit 31.4 % (37-53); Lymphocytes % 20.2 %; Mean Corpuscular HGB Conc 27.7 g/dL (30-55); Mean Corpuscular Hemoglobin 18.6 pg (27-33); Mean Corpuscular Volume 67.2 fl (82-101); Mean Platelet Volume 9.9 fL (7.4-10.4); Monocytes # 0.6 10^3/uL (0.2-0.9); Monocytes % 12.3 %; Neutrophils # 3.08 10^3/uL (1.8-7.7); Neutrophils % 62.5 %; Nucleated Red Blood Cells % 0 %; Platelet Count 191 10^3/cmm (157-399); Red Blood Count 4.67 10^6/uL (3.85-5.65); Red Cell Distribution Width 21.2 % (12.1-15.1); White Blood Count 4.94 10^3/uL (3.29-11.43)
[2024-09-03 10:23] LABS: Alanine Aminotransferase 8 U/L (0-41); Albumin Level 3.2 g/dL (3.5-5.2); Alkaline Phosphatase 104 U/L (40-130); Anion Gap 19.1 (5-19); Aspartate Amino Transferase 20 U/L (0-40); Blood Urea Nitrogen 6 mg/dL (8-23); Calcium 8.8 mg/dL (8.5-10.5); Carbon Dioxide 22 mmol/L (22-29); Chloride 100 mmol/L (98-107); Globulin 4.1 g/dL (1.3-4.6); Glomerular Filtration Rate 83.7 mL/min (90-130); Glucose 81 mg/dL (65-115); Osmolality Calculated 283 mOsm/kg (285-295); Potassium 3.1 mmol/L (3.5-5.1); Slide Review Slide Review Perform; Sodium 138 mmol/L (136-145); Total Bilirubin 0.5 mg/dL (0.15-1.2); Total Protein 7.3 g/dL (6.6-8.7)
[2024-09-03 11:37] LABS: Glucose Point of Care 89 mg/dL (70-110)
[2024-09-03] MEDS: folic acid 5 mg/ml MDV 10mL 1 MG IVP (11:38)
[2024-09-03] MEDS: sotalol 80 mg Tablet PO ×2 (11:38→20:46)
[2024-09-03] MEDS: clopidogrel 75 mg Tablet PO (11:38)
--- NOTE | 2024-09-03 15:22 | P.PN_ITS ---
Subjective 2 Subjective: Continue to feel better heart rate is under control Medications: Reviewed: Yes Vitals/I&O/Wt Last Vital Signs Temp 97.7 F 09/03/24 12:00 Pulse 96 09/03/24 14:26 Resp 18 09/03/24 14:26 BP 95/62 09/03/24 12:00 Pulse Ox 98 09/03/24 14:26 O2 Del Method Room Air 09/03/24 14:26 FiO2 24 08/31/24 08:00 09/03/24 09/03/24 09/03/24 06:59 14:59 22:59 Intake Total 50 / 400 290 / 290 Output Total 200 / 550 Balance -150 / -150 290 / 290 Weight last 48 hrs Weight 154 lb 4.8 oz Weight 160 lb 12.8 oz Physical Exam 2 Const: OTHER: GENERAL: Patient is alert, awake and oriented x3. HEART: Regular S1 and S2. No murmur, rub or gallop. LUNGS: Clear to auscultate bilaterally. CENTRAL NERVOUS SYSTEM: Grossly nonfocal. EXTREMITIES: Lower extremities with out edema bilaterally. Urinary Catheter Management: Cabrera: Cath Placed During This Visit: yes Reason for Continuing Indwelling Catheter: Accurate Measurement of Urinary Output in Critically Ill Patients Urinary Catheter Date of Insertion: 08/29/24 Urinary Catheter Time of Insertion: 14:31 Data 09/03/24 09:45 09/03/24 09:45 Micro: Microbiology 08/29/24 10:34 Blood Culture - Final Blood NO GROWTH AFTER 5 DAYS 08/29/24 10:30 Blood Culture - Final Blood NO GROWTH AFTER 5 DAYS A&P Assessment and plan (1) Obtunded: (2) CO2 narcosis: (3) Altered mental status: (4) Alcohol abuse: (5) Lethargic: (6) Respiratory acidosis: (7) Recurrent falls: (8) CAD (coronary artery disease): Qualifiers: Coronary Disease-Associated Artery/Lesion type: [place] artery [place] vs. transplanted heart: [place] heart Associated angina: without angina Q ualified Code(s): I25.10 - Atherosclerotic heart disease of [place] coronary artery without angina pectoris (9) Atrial fibrillation: Qualifiers: Atrial fibrillation type: paroxysmal Qualified Code(s): I48.0 - Paroxysmal atrial fibrillation (10) Peripheral arterial disease: (11) Depression due to dementia: (12) Alzheimer disease: (13) Diabetes mellitus: Plan Heart rate is under control therefore we will continue current regimen Rest of medication as per med PDMP PDMP Reviewed: Not Reviewed Attestations 2 Medical Necessity Statement*: Patient require continuation hospitalization for above defined care Coding Level of Care Code Acute Code for Chg Fwd Diagnoses Obtunded R40.1 CO2 narcosis R06.89 Altered mental status R41.82 Alcohol abuse F10.10 Lethargic R53.83 Respiratory acidosis E87.29 Recurrent falls R29.6 Coronary artery disease involving [place] coronary artery of [place] heart without angina pectoris I25.10 Coronary Disease-Associated Artery/Lesion type: [place] artery [place] vs. transplanted heart: [place] heart Associated angina: without angina Paroxysmal atrial fibrillation I48.0 Atrial fibrillation type: paroxysmal Peripheral arterial disease I73.9 Depression due to dementia F03.93 Alzheimer disease G30.9; F02.80 Diabetes mellitus E11.9
[2024-09-03 17:09] LABS: Glucose Point of Care 206 mg/dL (70-110)
[2024-09-03] MEDS: trazodone 50 mg Tablet PO (20:29)
[2024-09-03 20:50] LABS: Glucose Point of Care 226 mg/dL (70-110)
--- NOTE | 2024-09-03 23:06 | PC.NURSE ---
Messaged provider regarding night medicatrion of sotalol 80mg. Pt bp 87/61 HR 100 -- provider elected for me to give 40mg dose instead. Noted on medication admin. Pt on q15 min BP checks, Stable and asymptomatic at this time.
[2024-09-04] VITALS (10 sets, daily range): BP systolic 89–137; BP diastolic 58–78; PULSE 63–94; RESP 15–24; TEMP 36.5–36.8; O2SAT 95–99
[2024-09-04] MEDS: hyDROXYzine 25 mg Capsule PO (00:07)
[2024-09-04] MEDS: heparin 5,000 unit/mL INJ 1 mL 5000 UNIT SUBCUT (02:24)
[2024-09-04 03:44] LABS: Basophils # 0.1 10^3/uL (0.0-0.1); Basophils % 1.1 %; Eosinophils # 0.2 10^3/uL (0.0-0.8); Eosinophils % 4.1 %; Hematocrit 30.5 % (37-53); Lymphocytes # 1.2 10^3/uL (0.8-4.8); Mean Corpuscular HGB Conc 27.5 g/dL (30-55); Mean Corpuscular Hemoglobin 18.3 pg (27-33); Mean Corpuscular Volume 66.4 fl (82-101); Mean Platelet Volume 10.5 fL (7.4-10.4); Monocytes # 0.8 10^3/uL (0.2-0.9); Neutrophils # 3.17 10^3/uL (1.8-7.7); Neutrophils % 58.4 %; Nucleated Red Blood Cells % 0 %; Platelet Count 201 10^3/cmm (157-399); Red Blood Count 4.59 10^6/uL (3.85-5.65); Red Cell Distribution Width 21.4 % (12.1-15.1); White Blood Count 5.42 10^3/uL (3.29-11.43)
[2024-09-04 04:09] LABS: Alanine Aminotransferase 7 U/L (0-41); Alkaline Phosphatase 93 U/L (40-130); Anion Gap 15.1 (5-19); Aspartate Amino Transferase 17 U/L (0-40); Blood Urea Nitrogen 9 mg/dL (8-23); Calcium 8.9 mg/dL (8.5-10.5); Carbon Dioxide 23 mmol/L (22-29); Chloride 102 mmol/L (98-107); Creatinine Clr Calc Pharmacy 66.8365; Glomerular Filtration Rate 66.4 mL/min (90-130); Glucose 146 mg/dL (65-115); Osmolality Calculated 285 mOsm/kg (285-295); Potassium 3.1 mmol/L (3.5-5.1); Sodium 137 mmol/L (136-145); Total Bilirubin 0.3 mg/dL (0.15-1.2)
[2024-09-04] MEDS: potassium chloride ER 20 mEq Tablet 40 MEQ PO (04:49)
[2024-09-04] MEDS: piperacillin-tazobactam 3.375 GM in sodium chloride 0.9% (plus) 50 ML IV (04:54)
--- NOTE | 2024-09-04 06:02 | P.PN_ITS ---
Subjective 2 Subjective: Chart reveiwed 68 year old male With past medical histo ry of Alzheimer's dementia, hyperlipidemia, diabetes mellitus not on insulin, coronary disease , atrial fibrillation off a/c due to fall risk, daily alcohol abuse, history of hip fracture, recurrent falls admitted to the hospital on 08/29 with c/o increased somnolence. He was found to have hypercapneic respiratory acidosis on admission for which he started Bipap. He was hypothermic. Started treatment for COPD exacerbation with scheduled nebs. On high dose thiamine for possible Wernicke's. Sotalol was held due to low BP. By 09/01 mental status returned at baseline. Then course complicated by A fib with RVR. Galantamine was discontinued after discussion with neurology. sotalol was resumed and HR is better controlled. CT CAP showed possible patchy nodilar infiltrates RLL possible PNA, on treatment with Ceftriaxone and Azithromycin. MRSA nares +. Cirrhotic liver. Check Ammonia level. D/c Zosyn and ceftriaxone today. Day 6 of abx today,continue azithormycin to complete course tomorrow. Vitals/I&O/Wt Last Vital Signs Temp 97.7 F 09/04/24 04:00 Pulse 86 09/04/24 04:00 Resp 18 09/04/24 04:00 BP 119/78 09/04/24 04:00 Pulse Ox 98 09/03/24 20:46 O2 Del Method Room Air 09/03/24 20:46 FiO2 24 08/31/24 08:00 09/03/24 09/03/24 09/04/24 14:59 22:59 06:59 Intake Total 290 / 290 410 / 700 50 / 750 Output Total 300 / 300 400 / 700 Balance 290 / 290 110 / 400 -350 / 50 Weight last 48 hrs Weight 77.7 kg Weight 69.989 kg Physical Exam 2 Urinary Catheter Management: Cabrera: Cath Placed During This Visit: yes Reason for Continuing Indwelling Catheter: Accurate Measurement of Urinary Output in Critically Ill Patients Urinary Catheter Date of Insertion: 08/29/24 Urinary Catheter Time of Insertion: 14:31 Data 09/04/24 03:06 09/04/24 03:06 Micro: Microbiology 08/29/24 10:34 Blood Culture - Final Blood NO GROWTH AFTER 5 DAYS 08/29/24 10:30 Blood Culture - Final Blood NO GROWTH AFTER 5 DAYS A&P PDMP PDMP Reviewed: Not Reviewed Coding Level of Care Code Acute Code for Chg Fwd
[2024-09-04 06:58] LABS: Ammonia 28 umol/L (16-60)
[2024-09-04] MEDS: ipratropium-albuterol 3 mL Neb INHALATION ×2 (08:45→13:28)
[2024-09-04] MEDS: budesonide 0.5 mg/2 mL Neb INHALATION (08:45)
[2024-09-04] MEDS: azithromycin 250 mg Tablet PO (09:16)
[2024-09-04] MEDS: citalopram 20 mg Tablet 40 MG PO (09:16)
[2024-09-04] MEDS: clopidogrel 75 mg Tablet PO (09:16)
[2024-09-04] MEDS: atorvastatin 40 mg Tablet PO (09:16)
[2024-09-04] MEDS: pregabalin 75 mg Capsule PO (09:17)
[2024-09-04] MEDS: sotalol 80 mg Tablet PO (09:17)
[2024-09-04] MEDS: ropinirole 0.25 mg Tablet 0.5 MG PO (09:17)
[2024-09-04] MEDS: nicotine 14 mg Patch 1 PATCH TRANSDERMA (09:18)
[2024-09-04] MEDS: folic acid 5 mg/ml MDV 10mL 1 MG IVP (10:55)
--- NOTE | 2024-09-04 10:57 | FL_ITS ---
WS: [id number] MODIFIED BARIUM SWALLOW TECHNIQUE: Modified barium swallow with speech therapy using multiple consistencies. FLUOROSCOPY TIME: 3min [id number] # of spot films: 1 CLINICAL INFORMATION: Oropharyngeal dysphagia COMPARISON: None. FINDINGS: Multiple consistencies utilized. Significantly delayed oropharyngeal phase with difficulty and delayed bolus formation. Early spillage with pooling in the vallecula. No significant penetration or aspiration. No difficulties with the barium tablet. FL/FL barium swallow modifd [id number] IMPRESSION: 1. Significantly delayed oropharyngeal phase with delayed bolus formation. 2. Early spillage with pooling in vallecula 3. No penetration or aspiration
--- NOTE | 2024-09-04 12:51 | PC.SOCIAL ---
IMM Update pg 2 of IMM updated and reviewed w/ patient. Copy provided and copy dated, initialed and placed in chart.
--- NOTE | 2024-09-04 15:11 | P.DS_ITS ---
Discharge Providers Date of Admission: 08/29/24 13:49 Date of Discharge: September 04, 2024 Attending Provider at Admission: Mily Herbert MD Attending Provider at Discharge: Darshana Weber MD Primary Care Provider: Jane Lindsey MD Diagnoses at Discharge Discharge Diagnosis (1) Obtunded: Status: Acute (2) CO2 narcosis: Status: Acute (3) Altered mental status: Status: Acute (4) Alcohol abuse: Status: Acute (5) Lethargic: Status: Acute (6) Respiratory acidosis: Status: Acute (7) Recurrent falls: Status: Acute (8) CAD (coronary artery disease): Status: Acute Qualifiers: Coronary Disease-Associated Artery/Lesion type: [place] artery [place] vs. transplanted heart: [place] heart Associated angina: without angina Qualified Code(s): I25.10 - Atherosclerotic heart disease of [place] coronary artery without angina pectoris (9) Atrial fibrillation: Status: Acute Qualifiers: Atrial fibrillation type: paroxysmal Qualified Code(s): I48.0 - Paroxysmal atrial fibrillation (10) Peripheral arterial disease: Status: Acute (11) Depression due to dementia: Status: Acute (12) Alzheimer disease: Status: Acute (13) Diabetes mellitus: Status: Acute Reason for Visit Reason for Visit: multi-falls Brief History: 68 year old male With past medical histo ry of Alzheimer's dementia, hype rlipidemia, diabetes mellitus not on insulin, coronary disease , atrial fibrillation off a/c due to fall risk, daily alcohol abuse, history of hip fracture, recurrent falls admitted to the hospital on 08/29 with c/o increased somnolence. He was found to have hypercapneic respiratory acidosis on admission for which he started Bipap which improved his hypercapnea. He is recommended to undergo sleep study and PFTs as outpatient. Recommended to D/c opiates as may contribute to hypercapnea especially with concomitatnt heavy alcohol use. He received treatment for COPD exacerbation with scheduled nebs. By 09/01 mental status returned at baseline. Then course complicated by A fib with RVR, which improved with resumed Sotalol. Galantamine was discontinued after discussion with neurology. CT CAP showed possible patchy nodilar infiltrates RLL possible PNA, for which he received treatment with Zosyn, Vancomycin Ceftriaxone and Azithromycin. Day 6 of abx today, therefore discontinued as completed adequate course. He was suspected to have aspiration pneumonia therefore underwent a speech therapy assessment. Dysphagia level 6 diet was recommended. His was very concerned about the new change in his diet consistency and requested a swallow study. A modified barium swallow was completed today which showed significantly delayed oropharyngeal phase with delays bolus formation. There was no signs of penetration or aspiration, early spillage with pooling was noted in the vallecula. Patient was evaluated by speech therapy and provided with instructions with regards to dietary/food consistency changes and safe swallowing instructions. Referral provided for continued swallow therapy as outpatient. Patient recommended to refrain from alcohol use. Hemoglobin remained stable be tween 7.8-9.2 on this current admission. 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 Overall patient is at baseline mentation, much improved compared to at admission. Physical Exam Narrative: General: No acute distress, AO x3 HEENT: PERRLA, pupils bilaterally equal and reactive, pallors not present Chest: Normal vesicular breath sounds, no added sounds, equal good air entry b ilaterally CVS: S1-S2 regular, no murmurs, no tachycardia, no gallops, no rubs Abdomen: Soft, nontender, no organomegaly, bowel sounds present Neuro: No focal deficits, no facial deformity, AO x3, power 5/5 in all limbs Urinary Catheter Management: Cabrera: Cath Placed During This Visit: yes Reason for Continuing Indwelling Catheter: Other Urinary Catheter Date of Insertion: 08/29/24 Urinary Catheter Time of Insertion: 14:31 Discharge Data Studies Completed and Pending Completed Studies During Hospitalization Category Date Time Status CT head wo con* [id number] Stat Cat Scan 08/29/24 11:[address] abdomen pelvis [CT Angio Chest + Abdomen Cat Scan 08/29/24 10:11 Completed Pelvis w/ contrast; [id number] + [id number]] Stat Modified barium swallow [FL barium swallow modifd [id number] Exams 09/04/24 10:57 Completed ] Routine XR chest 1V portable [id number] Stat Exams 08/29/24 10:02 Completed CV. echo complete* [id number] Stat Ultrasound 08/30/24 14:04 Completed Pending at discharge Category Date Time Status Occult Blood Stool [Immunochemical Fecal OCB] Routine Lab 08/29/24 14:21 Uncollected Sputum Culture and Gram Stain Stat Lab 08/29/24 14:00 Uncollected Radiology Impressions Chest X-Ray 08/29/24 10:02 IMPRESSION: 1. No acute cardiopulmonary finding. Chest/Abdomen/Pelvis CT 08/29/24 10:11 IMPRESSION: 1. No evidence of pulmonary embolus. 2. Dense coronary calcification. 3. Patchy nodular infiltrates in the RIGHT lower lobe. Recommend correlation for pneumonia. 4. Cirrhotic liver. 5. Gastric wall enhancement compatible with gastritis. 6. Extensive sigmoid diverticulosis. No evidence of acute diverticulitis. 7. Chronic compression fracture L2 vertebral body with mild chronic retropulsion. Head CT 08/29/24 11:56 IMPRESSION: 1. No evidence of intracranial hemorrhage or mass effect. 2. Residual contrast from CT earlier today. 3. Moderate small vessel changes and moderate parenchymal volume loss. 4. Low-attenuation change with encephalomalacia in the LEFT parietal lobe likely due to prior infarct. 5. Vascular calcification. Modified Barium Swallow 09/04/24 10:57 IMPRESSION: 1. Significantly delayed oropharyngeal phase with delayed bolus formation. 2. Early spillage with pooling in vallecula 3. No penetration or aspiration Laboratory Results WBC 5.42 10^3/uL (3.29-11.43) 09/04/24 03:06 RBC 4.59 10^6/uL (3.85-5.65) 09/04/24 03:06 Hgb 8.40 g/dL (11.27-16.99) L 09/04/24 03:06 Hct 30.5 % (37-53) L 09/04/24 03:06 MCV 66.4 fl (82-101) L 09/04/24 03:06 MCH 18.3 pg (27-33) L 09/04/24 03:06 MCHC 27.5 g/dL (30-55) L 09/04/24 03:06 RDW 21.4 % (12.1-15.1) H 09/04/24 03:06 Plt Count 201 10^3/cmm (157-399) 09/04/24 03:06 MPV 10.5 fL (7.4-10.4) H 09/04/24 03:06 Neut % (Auto) 58.4 % 09/04/24 03:06 Lymph % (Auto) 22.0 % 09/04/24 03:06 [place] % (Auto) 14.0 % 09/04/24 03:06 Eos % (Auto) 4.1 % 09/04/24 03:06 Baso % (Auto) 1.1 % 09/04/24 03:06 Neut # (Auto) 3.17 10^3/uL (1.8-7.7) 09/04/24 03:06 Lymph # (Auto) 1.2 10^3/uL (0.8-4.8) 09/04/24 03:06 [place] # (Auto) 0.8 10^3/uL (0.2-0.9) 09/04/24 03:06 Eos # (Auto) 0.2 10^3/uL (0.0-0.8) 09/04/24 03:06 Baso # (Auto) 0.1 10^3/uL (0.0-0.1) 09/04/24 03:06 Nucleated RBC % (auto) 0 % 09/04/24 03:06 Nucleated RBCs # 0.0 /100WBC 09/04/24 03:06 Specimen Type Arterial 08/30/24 20:20 Sample Site Radial, right 08/30/24 20:20 ABG pH 7.41 (7.35-7.45) 08/30/24 20:20 ABG pCO2 40.0 mmHg (35-45) 08/30/24 20:20 ABG pO2 90.6 mmHg (80.0-100.0) 08/30/24 20:20 ABG PO2/FiO2 Ratio 377 08/30/24 20:20 ABG HCO3 25.5 mmol/L (22-26) 08/30/24 20:20 ABG O2 Saturation 90.6 08/29/24 17:07 ABG Base Excess 0.9 mmol/L (-2.0-2.0) 08/30/24 20:20 Sam Test Pos 08/30/24 20:20 A-a O2 Gradient 4.5 mmHg (5-10) L 08/29/24 17:07 Hematocrit 32.9 % (42-52) L 08/30/24 20:20 Hgb O2 Saturation 88.7 % (95-100) L 08/29/24 17:07 Carboxyhemoglobin 1.8 %THgb (0.4-20.1) 08/29/24 17:07 Methemoglobin 0.3 % (0.4-1.5) L 08/29/24 17:07 Total Hemoglobin 10.6 g/dL (14-18) L 08/29/24 17:07 Sodium 137.0 mmol/L (131-143) 08/29/24 17:07 Potassium 3.9 mmol/L (3.5-5.0) 08/29/24 17:07 Glucose 95.0 mg/dL (70-115) 08/29/24 17:07 Ionized Calcium 1.2 mmol/L (1.1-1.4) 08/29/24 17:07 O2 Delivery Device Bipap 08/30/24 20:20 O2 Liters/Min 2.0 % 08/29/24 10:22 FiO2 24.0 % 08/30/24 20:20 Tidal Volume 0.50 08/30/24 20:20 PEEP 8.0 cmH20 08/30/24 20:20 Lining Stitcher ID Jdb 08/30/24 20:20 Sodium 137 mmol/L (136-145) 09/04/24 03:06 Potassium 3.1 mmol/L (3.5-5.1) L 09/04/24 03:06 Chloride 102 mmol/L (98-107) 09/04/24 03:06 Carbon Dioxide 23 mmol/L (22-29) 09/04/24 03:06 Anion Gap 15.1 (5-19) 09/04/24 03:06 BUN 9 mg/dL (8-23) 09/04/24 03:06 Creatinine 1.1 mg/dL (0.7-1.2) 09/04/24 03:06 GFR Calculation 66.4 mL/min (90-130) L 09/04/24 03:06 Glucose 146 mg/dL (65-115) H 09/04/24 03:06 POC Glucose 226 mg/dL (70-110) H 09/03/24 20:38 Calculated Osmolality 285 mOsm/kg (285-295) 09/04/24 03:06 Lactic Acid 2.2 mmol/L (0.5-2.2) 08/29/24 10:34 Lactic Acid (Sepsis) 1.6 mmol/L (0.5-2.2) 08/29/24 13:27 Calcium 8.9 mg/dL (8.5-10.5) 09/04/24 03:06 Phosphorus 3.1 mg/dL (2.5-4.5) 08/31/24 05:35 Magnesium 1.6 mg/dL (1.7-2.3) L 09/02/24 07:15 Total Bilirubin 0.3 mg/dL (0.15-1.2) 09/04/24 03:06 AST 17 U/L (0-40) 09/04/24 03:06 ALT 7 U/L (0-41) 09/04/24 03:06 Alkaline Phosphatase 93 U/L (40-130) 09/04/24 03:06 Ammonia 28 umol/L (16-60) 09/04/24 06:35 Creatine Kinase 30 U/L (39-308) L 08/29/24 10:34 Troponin T Baseline < 6 ng/L (0-15) 08/29/24 10:34 Troponin T 120 Minute 6.00 ng/L (0-15) 08/29/24 12:24 Delta Troponin T 0.91385 ABS# (0-10) 08/29/24 12:24 Troponin T Hi Sens 6Hr 6.00 ng/L (0-15) 08/29/24 16:14 Troponin T Hi Sens 6Hr Delta 0.93978 ng/L (0-12) 08/29/24 16:14 NT-Pro-B Natriuret Pep 1881 pg/mL (0-125) H 08/29/24 10:34 Total Protein 7.0 g/dL (6.6-8.7) 09/04/24 03:06 Albumin 3.0 g/dL (3.5-5.2) L 09/04/24 03:06 Globulin 4.0 g/dL (1.3-4.6) 09/04/24 03:06 Lipase 28 U/L (13-60) 08/29/24 10:34 Vitamin B12 534 pg/mL (232-1245) 08/29/24 10:34 Urine Color Yellow (Yellow) 08/29/24 11:07 Urine Appearance Clear (CLEAR) 08/29/24 11:07 Urine pH 5.0 (5-7) 08/29/24 11:07 Ur Specific [place] 1.015 (1.005-1.030) 08/29/24 11:07 Urine Protein Negative (Negative) 08/29/24 11:07 Urine Glucose (UA) 2+ (Normal) H 08/29/24 11:07 Urine Ketones Negative (Negative) 08/29/24 11:07 Urine Blood Negative (Negative) 08/29/24 11:07 Urine Nitrate Negative (Negative) 08/29/24 11:07 Urine Bilirubin Negative (Negative) 08/29/24 11:07 Urine Urobilinogen 0.2 mg/dL (Negative) 08/29/24 11:07 Ur Leukocyte Esterase Negative (Negative) 08/29/24 11:07 Urine RBC 0-2 /hpf (0-2) 08/29/24 11:07 Urine WBC 0-5 /hpf (0-5) 08/29/24 11:07 Ur Squamous Epith Cells 0-5 /hpf (0-5) 08/29/24 11:07 Amorphous Sediment Not Reportable 08/29/24 11:07 Urine Bacteria None seen /hpf (NONE) 08/29/24 11:07 Hyaline Casts 8.67 /lpf 08/29/24 11:07 Nasal MRSA (PCR) Mr[place] detected (Negative) A 08/29/24 17:50 Vancomycin Trough 19.4 ug/mL (10-15) H 09/02/24 07:15 Ethyl Alcohol < 10 mg/dL (0-10) 08/29/24 10:34 Serum Ketones Negative (Negative) 08/29/24 10:34 Influenza A (PCR) Negative (Negative) 08/29/24 13:51 Influenza Type B (PCR) Negative (Negative) 08/29/24 13:51 RSV (PCR) Negative (Negative) 08/29/24 13:51 SARS-CoV-2 (PCR) Negative (Negative) 08/29/24 13:51 Vitals Last Vital Signs Temp 97.8 F 09/04/24 12:00 Pulse 67 09/04/24 13:37 Resp 18 09/04/24 13:28 BP 120/68 09/04/24 12:00 Pulse Ox 99 09/04/24 13:28 O2 Del Method Room Air 09/04/24 13:28 FiO2 24 08/31/24 08:00 Discharge Plan Discharge Patient Disposition: Home Health Service Condition: Stable Prescriptions: Continued metformin 1,000 mg tablet 1,000 tab PO BID pantoprazole 40 mg tablet,delayed release (DR/EC) 40 ea PO DAILY clopidogrel 75 mg tablet 75 tab PO DAILY trazodone 50 mg tablet 50 ea PO DAILY tramadol 50 mg tablet 50 tab PO DAILY Farxiga 10 mg tablet 10 ea PO DAILY atorvastatin [Lipitor] 40 mg tablet 40 ea PO DAILY ropinirole 0.5 mg tablet 0.5 mg PO BID pregabalin 75 mg capsule 75 mg PO TID fluticasone furoate-vilanterol [Breo Ellipta] 100-25 mcg/dose blister with device 1 inh inhalation DAILY furosemide 40 mg tablet 40 mg PO DAILY Qty: 30 3RF Rx Instructions: Take 1 tab daily in AM. citalopram 40 mg tablet 40 mg PO DAILY Qty: 90 3RF hydroxyzine HCl 25 mg tablet 25 mg PO QID PRN (Reason: Anxiety) sotalol 120 mg tablet 120 mg PO BID Qty: 180 3RF levalbuterol tartrate 45 mcg/actuation HFA aerosol inhaler See Rx Instructions .ROUTE .COMPLEX Qty: 15 0RF Dose Instruction: TAKE TWO puffs by inhalation EVERY 6 HOURS NEEDED FOR SHORTNESS OF BREATH Rx Instructions: TAKE TWO puffs by inhalation EVERY 6 HOURS NEEDED FOR SHORTNESS OF BREATH furosemide 20 mg tablet 20 mg PO DAILY Qty: 90 0RF Rx Instructions: Take 1 tab at noon. diltiazem HCl 60 mg capsule,extended release 12 hr 60 mg PO BID Qty: 90 0RF albuterol sulfate 90 mcg/actuation HFA aerosol inhaler 2 inh INHALATION Q6H potassium chloride 20 mEq tablet extended release 20 meq PO QAM Held galantamine 8 mg tablet 8 mg PO BID Qty: 180 3RF Hold Instructions: Resume on 09/18/24. hold until follow up with neurology Rx Instructions: administer with AM and PM meals Discontinued hydrocodone-acetaminophen 5-325 mg tablet 1 tab PO Q8H Discharge Orders: Discharge Order (Routine); Ordered 09/04/24 Ordered By: Darshana Weber Other Ambulatory Orders: Sleep Study/Titration (Routine) Timeframe: 1 Week Facility: [facility] - Location: [facility] Ordered By: Darshana Weber Referrals: [facility] [Outside] Gloria Goins NP [Nurse Practitioner] - 7-10 days Jane Lindsey MD [Primary Care Provider] - 09/11/24 11:20 am ( ) [facility] [Outside] - 7-10 days (liver cirrhosis ) Speech Therapy - [facility] [Provider Group] (swallow eval and treat ) Discharge Diet: Usual diet Discharge Activity: Resume usual activity Patient Instructions: Altered Mental Status (ED), Opioid Safety Discharge Attestations Time Spent in Discharge Care*: greater than 30 min Quality Metrics Clinical Quality Measures [ No reported AMI, CVA or VTE this stay] Coding Level of Care Code Acute Code for Chg Fwd Diagnoses Obtunded R40.1 CO2 narcosis R06.89 Altered mental status R41.82 Alcohol abuse F10.10 Lethargic R53.83 Respiratory acidosis E87.29 Recurrent falls R29.6 Coronary artery disease involving [place] coronary artery of [place] heart without angina pectoris I25.10 Coronary Disease-Associated Artery/Lesion type: [place] artery [place] vs. transplanted heart: [place] heart Associated angina: without angina Paroxysmal atrial fibrillation I48.0 Atrial fibrillation type: paroxysmal Peripheral arterial disease I73.9 Depression due to dementia F03.93 Alzheimer disease G30.9; F02.80 Diabetes mellitus E11.9
--- NOTE | 2024-09-04 15:21 | P.PN_ITS ---
<Statement entered by Courtney Saleh MD - 09/04/24 20:13> Patient was evaluated and cared for in conjunction with an advanced practice practitioner. I personally examined the patient and reviewed the chart and all pertinent data including imaging, telemetry, and laboratory results. I discussed the patient in detail with the advanced practice practitioner. Please see their note for complete H&P testing result and agreed upon plan of care for the patient. Subjective 2 Subjective: Patient doing well this morning. Denies chest pain or shortness of breath. Denies palpitations. Currently heart rate is controlled at 86 and blood pressure stable at 119/78. Vitals/I&O/Wt Last Vital Signs Temp 97.8 F 09/04/24 12:00 Pulse 67 09/04/24 13:37 Resp 18 09/04/24 13:28 BP 120/68 09/04/24 12:00 Pulse Ox 99 09/04/24 13:28 O2 Del Method Room Air 09/04/24 13:28 FiO2 24 08/31/24 08:00 09/04/24 09/04/24 09/04/24 06:59 14:59 22:59 Intake Total 50 / 750 820 / 820 Output Total 400 / 700 Balance -350 / 50 820 / 820 Weight last 48 hrs Weight 171 lb 4.8 oz Weight 154 lb 4.8 oz Physical Exam 2 Narrative: General: No apparent distress, healthy appearing, well nourished HENMT: normoceophalic Muskuloskeletal: Full ROM Respiratory: Normal respiratory effort, expiratory wheezes bilateral lower lobes, no use of accessory muscles Cardio: No JVD, regular rate, regular rhythm, S1 S2 normal, no murmurs, peripheral pulses 2+ radial palpated bilaterally GI: Normal to inspection, nondistended Extremities: Full ROM, normal, normal capillary refill, no cyanosis or edema Neuro: Alert and oriented x3 Psych: Affect normal Skin: No rashes or lesions noted, no wounds Urinary Catheter Management: Cabrera: Cath Placed During This Visit: yes Reason for Continuing Indwelling Catheter: Other Urinary Catheter Date of Insertion: 08/29/24 Urinary Catheter Time of Insertion: 14:31 Data 09/04/24 03:06 09/04/24 03:06 Micro: Microbiology 08/29/24 10:34 Blood Culture - Final Blood NO GROWTH AFTER 5 DAYS 08/29/24 10:30 Blood Culture - Final Blood NO GROWTH AFTER 5 DAYS A&P Assessment and plan (1) Obtunded: (2) CO2 narcosis: (3) Altered mental status: (4) Alcohol abuse: (5) Lethargic: (6) Respiratory acidosis: (7) Recurrent falls: (8) CAD (coronary artery disease): Qualifiers: Coronary Disease-Associated Artery/Lesion type: [place] artery [place] vs. transplanted heart: [place] heart Associated angina: without angina Q ualified Code(s): I25.10 - Atherosclerotic heart disease of [place] coronary artery without angina pectoris (9) Atrial fibrillation: Qualifiers: Atrial fibrillation type: paroxysmal Qualified Code(s): I48.0 - Paroxysmal atrial fibrillation (10) Peripheral arterial disease: (11) Depression due to dementia: (12) Alzheimer disease: (13) Diabetes mellitus: Plan Patient appears to be back at baseline. Heart rate is stable blood pressure controlled. From cardiology standpoint may be discharged on current dose of sotalol. Follow-up in clinic in 7 to 10 days. Avoiding Eliquis due to high rall risk and hx of anemia. PDMP PDMP Reviewed: Not Reviewed Attestations 2 Medical Necessity Statement*: Defer to primary Coding Level of Care Code Acute Code for Chg Fwd Diagnoses Obtunded R40.1 CO2 narcosis R06.89 Altered mental status R41.82 Alcohol abuse F10.10 Lethargic R53.83 Respiratory acidosis E87.29 Recurrent falls R29.6 Coronary artery disease involving [place] coronary artery of [place] heart without angina pectoris I25.10 Coronary Disease-Associated Artery/Lesion type: [place] artery [place] vs. transplanted heart: [place] heart Associated angina: without angina Paroxysmal atrial fibrillation I48.0 Atrial fibrillation type: paroxysmal Peripheral arterial disease I73.9 Depression due to dementia F03.93 Alzheimer disease G30.9; F02.80 Diabetes mellitus E11.9
--- NOTE | 2024-09-04 17:03 | PC.NURSE ---
referral paperwork has been faxed to [facility]
== END 2024-09-04 16:45 | disposition home health service (06) | DRG 178 ==
LOC: ER 11:38 → ICU 13:49 → CSU 09-02 14:24
PROVIDERS: Family Medicine; Admitting Provider Internal Medicine; Emergency Provider Family Medicine; PCP Family Medicine; Visit Provider Student in an Organized Health Care Education/Training Program
DX: J69.0 Pneumonitis due to inhalation of food and vomit (principal); E87.29 Other acidosis; F02.811 Dementia in other diseases classified elsewhere, unspecified severity, with agitation; F02.83 Dementia in other diseases classified elsewhere, unspecified severity, with mood disturbance; J44.1 Chronic obstructive pulmonary disease with (acute) exacerbation; F10.10 Alcohol abuse, uncomplicated; F12.988 Cannabis use, unspecified with other cannabis-induced disorder; R29.6 Repeated falls; I25.10 Atherosclerotic heart disease of native coronary artery without angina pectoris; I48.91 Unspecified atrial fibrillation; E11.51 Type 2 diabetes mellitus with diabetic peripheral angiopathy without gangrene; G30.9 Alzheimer's disease, unspecified; E78.5 Hyperlipidemia, unspecified; R06.89 Other abnormalities of breathing; R68.0 Hypothermia, not associated with low environmental temperature; Z66 Do not resuscitate; F17.210 Nicotine dependence, cigarettes, uncomplicated; Z95.5 Presence of coronary angioplasty implant and graft; Z86.73 Personal history of transient ischemic attack (TIA), and cerebral infarction without residual deficits; Z79.02 Long term (current) use of antithrombotics/antiplatelets
CPT/HCPCS: 36415; 36416; 36600; 51702; 70450; 71045; 71275; 74177; 74230; 80048; 80051; 80053; 80202; 80307; 81001; 82009; 82140; 82330; 82550; 82607; 82803; 82805; 82962; 83605; 83690; 83735; 83880; 84100; 84484; 85025; 87040; 87637; 92507; 92523; 92526; 92610; 92611; 93005; 93306; 94640; 94660; 96365; 96367; 96372; 96376; 99291; 99292; J0696; J1644; J2060; J2270; J2470; J2543; J3370; J3411; J3475; J3490; J7030; J7050; J7626; J9999; Q0144